=== PATIENT | female | born 1945 | race Caucasian/White ===

== ENCOUNTER 2017-01-02 09:11 | Inpatient (IN) | payer MEDICARE, BC ==
[2017-01-02] MEDS ORDERED: Sodium Chloride 0.9% 10 ML Syringe FLUSH PRN ×3 (10:06→10:20)
--- NOTE | 2017-01-02 10:13 | EDM.PDOC ---
ED HPI GENERAL MEDICAL PROBLEM - General Chief Complaint: Allergic Reaction Stated Complaint: REACTION TO MEDS Time Seen by Provider: 01/02/17 09:50 Source of Information: Reports: Patient, Family, RN Notes Reviewed History Limitations: Reports: No Limitations - History of Present Illness INITIAL COMMENTS - FREE TEXT/NARRATIVE: 71-year-old female presents emergency department today with bilateral eye swelling upper lip swelling she initially developed a small abscess on her forehead approximately 5-6 days ago was treated with Keflex she states she had 2 full day courses of antibiotic return to her primary care where the abscess was lanced with thick purulent drainage was changed antibiotic of clindamycin she has received 1 days dose. The redness has continued to spread as well as the edema. She had a small amount of edema appreciated on her inner aspect of the right eye prior to starting Keflex, the edema and now has spread to both eyes into her upper lip and the redness has progressively gotten worse - Related Data Allergies Allergy/AdvReac Type Severity Reaction Status Date / Time pneumococcal vaccine Allergy Rash Verified 01/02/17 09:38 [Pneumococcal Vaccine] silver sulfadiazine Allergy Rash Verified 01/02/17 09:38 [From Silvadene] Sulfa (Sulfonamide Allergy Rash Verified 01/02/17 09:38 Antibiotics) trazodone Allergy Swelling Verified 01/02/17 09:38 Home Meds: Home Meds Aspirin [Adult Low Dose Aspirin EC] 81 mg PO DAILY 05/08/13 [History] Furosemide [Lasix] 20 mg PO DAILY 05/08/13 [History] Levothyroxine [Synthroid] 1 tab PO DAILY 05/08/13 [History] Pantoprazole [Protonix] 40 mg PO BID 05/08/13 [History] Sotalol HCl [Betapace] 160 mg PO BID 05/08/13 [History] Valsartan [Diovan] 80 mg PO DAILY 05/08/13 [History] Venlafaxine HCl [Venlafaxine ER] 1 tab PO DAILY 05/08/13 [History] Warfarin Sliding Scale [Coumadin Sliding Scale] 2.5 each PO ASDIRECTED 05/08/13 [History] metFORMIN [Glucophage] 500 mg PO DAILY 05/08/13 [History] Calcium Citrate 400 mg PO BID 12/10/14 [History] Doxycycline [Doxycycline Monohydrate] 100 mg PO BID 12/10/14 [History] Losartan [Cozaar] 25 mg PO DAILY 12/10/14 [History] atorvaSTATin [Lipitor] 40 mg PO DAILY 12/10/14 [History] Past Medical History HEENT History: Reports: Cataract Cardiovascular History: Reports: Afib, High Cholesterol, Hypertension Respiratory History: Reports: Sleep Apnea Gastrointestinal History: Reports: GERD Musculoskeletal History: Reports: Fracture Psychiatric History: Reports: Depression Endocrine/Metabolic History: Reports: Diabetes, Type II, Hypothyroidism Hematologic History: Reports: Anticoagulation Therapy - Past Surgical History HEENT Surgical History: Reports: Tonsillectomy Cardiovascular Surgical History: Reports: Other (See Below) Other Cardiovascular Surgeries/Procedures: ablation GI Surgical History: Reports: Cholecystectomy, Colonoscopy Female Surgical History: Reports: Hysterectomy Musculoskeletal Surgical History: Reports: Other (See Below) Other Musculoskeletal Surgeries/Procedures:: wrist fx repair Social & Family History - Tobacco Use Smoking Status *Q: Never Smoker - Recreational Drug Use Recreational Drug Use: No ED ROS ALLERGIC REACTION - Review of Systems Review Of Systems: See Below Constitutional: Denies: Fever, Chills HEENT: Reports: No Symptoms, Eye Discharge. Denies: Eye Pain, Vision Change Respiratory: Reports: No Symptoms Cardiovascular: Reports: No Symptoms GI/Abdominal: Reports: No Symptoms : Reports: No Symptoms Musculoskeletal: Reports: No Symptoms Skin: Reports: Pallor, Rash, Erythema, Wound, Change in Color Neurological: Reports: No Symptoms ED EXAM GENERAL NO PERIP PULSE - Physical Exam Exam: See Below Text/Narrative:: General: female, not in any distress, alert and oriented x3 HEENT: head is she does have an open wound on her forehead between her eyes with thick purulent yellow drainage normocephalic, eyes eyes pupils are equal and round the left eye is difficult to appreciate because of the periorbital edema there is a mild amount of erythema appreciated around the eye the right eye also has edema but she is able to open this I the erythema is also present periorbital. Ears tympanic membranes clear and ackerman landmarks and light reflex are present bilaterally canals are clear. Nose no septal deviation, nares are clear, no blood present. Mouth mucosa is moist and pink no erythema or exudate noted in soft palate, tongue is midline uvula is midline, dentition is intact. Neck: Supple no thyromegaly no tracheal deviation. Nodes: Cervical nodes subclavicular nodes nontender no palpable lymphadenopathy noted. Lungs: clear to auscultation bilaterally with symmetrical respirations, no adventitious noise appreciated. CV: Regular rate and rhythm S1 and S2 appreciated no murmurs rubs or gallops noted. Abdomen: Soft, nontender, no palpable masses or organomegaly appreciated, no distention no guarding bowel sounds are present, . Neuro: Cranial nerves II through XII grossly intact Skin: erythema described above Extremities: chronic venous stasis dermatitis Course - Vital Signs Last Recorded V/S: Last Vital Signs Temp 96.8 F 01/02/17 09:35 Pulse 85 01/02/17 09:35 Resp 20 01/02/17 09:35 BP 171/96 H 01/02/17 09:35 Pulse Ox 94 L 01/02/17 09:35 - Orders/Labs/Meds Orders: Active Orders 24 hr Category Date Time Status Peripheral IV Care [RC] . DIRECTED Care 01/02/17 10:07 Active CULTURE BLOOD [BC] Urgent Lab 01/02/17 10:15 Received CULTURE BLOOD [BC] Urgent Lab 01/02/17 10:20 Received CULTURE WOUND + SMEAR [] Urgent Lab 01/02/17 10:45 Results Piperacillin/Tazobactam [Zosyn] 4.5 gm Med 01/02/17 11:45 Active Sodium Chloride 0.9% [Normal Saline] 100 ml IV Q6H Sodium Chloride 0.9% [Normal Saline] 1,000 ml Med 01/02/17 10:45 Active IV ASDIRECTED Sodium Chloride 0.9% [Saline Flush] Med 01/02/17 10:06 Active 10 ml FLUSH ASDIRECTED PRN Sodium Chloride 0.9% [Saline Flush] Med 01/02/17 10:06 Active 10 ml FLUSH ASDIRECTED PRN Sodium Chloride 0.9% [Saline Flush] Med 01/02/17 10:20 Active 10 ml FLUSH ONETIME PRN Vancomycin 1.5 gm Med 01/02/17 12:00 Active Sodium Chloride 0.9% [Normal Saline] 250 ml IV Q12H Blood Culture x2 Reflex Set [OM.PC] Urgent Oth 01/02/17 10:06 Ordered Peripheral IV Insertion Adult [OM.PC] Stat Oth 01/02/17 10:06 Ordered Medication Orders Sodium Chloride (Normal Saline) 1,000 mls @ 500 mls/hr IV ASDIRECTED JENNIFER Last Admin: 01/02/17 11:22 Dose: 500 mls/hr Piperacillin Sod/Tazobactam (Sod 4.5 gm/ Sodium Chloride) 100 mls @ 200 mls/hr IV Q6H JENNIFER Vancomycin HCl 1.5 gm/ Sodium (Chloride) 250 mls @ 150 mls/hr IV Q12H JENNIFER Sodium Chloride (Saline Flush) 10 ml FLUSH ASDIRECTED PRN PRN Reason: Keep Vein Open Sodium Chloride (Saline Flush) 10 ml FLUSH ASDIRECTED PRN PRN Reason: Keep Vein Open Sodium Chloride (Saline Flush) 10 ml FLUSH ONETIME PRN PRN Reason: PER RADIOLOGY PROTOCOL Last Admin: 01/02/17 11:01 Dose: 10 ml Labs: Laboratory Tests 01/02/17 01/02/17 01/02/17 Range/Units 10:15 10:15 10:15 WBC 9.4 (4.5-11.0) K/uL RBC 4.29 (3.30-5.50) M/uL Hgb 12.3 (12.0-15.0) g/dL Hct 37.7 (36.0-48.0) % MCV 88 (80-98) fL MCH 29 (27-31) pg MCHC 33 (32-36) % Plt Count 249 (150-400) K/uL Neut % (Auto) 71 H (36-66) % Lymph % (Auto) 17 L (24-44) % [place] % (Auto) 9 H (2-6) % Eos % (Auto) 2 (2-4) % Baso % (Auto) 1 (0-1) % PT 21.2 H (9.5-12.0) sec INR 1.93 H (0.80-1.20) Sodium 138 L (140-148) mmol/L Potassium 4.1 (3.6-5.2) mmol/L Chloride 102 (100-108) mmol/L Carbon Dioxide 28 (21-32) mmol/L Anion Gap 12.1 (5.0-14.0) mmol/L BUN 12 (7-18) mg/dL Creatinine 0.7 (0.6-1.0) mg/dL Est Cr Clr Drug Dosing 68.65 mL/min Estimated GFR (MDRD) > 60 (>60) Glucose 166 H (74-106) mg/dL Lactic Acid (0.4-2.0) mmol/L Calcium 9.0 (8.5-10.1) mg/dL Total Bilirubin 0.4 (0.2-1.0) mg/dL AST 16 (15-37) U/L ALT 30 (12-78) U/L Alkaline Phosphatase 70 (46-116) U/L Total Protein 7.4 (6.4-8.2) g/dL Albumin 3.1 L (3.4-5.0) g/dL Globulin 4.3 H (2.3-3.5) g/dL Albumin/Globulin Ratio 0.7 L (1.2-2.2) 01/02/17 Range/Units 10:15 WBC (4.5-11.0) K/uL RBC (3.30-5.50) M/uL Hgb (12.0-15.0) g/dL Hct (36.0-48.0) % MCV (80-98) fL MCH (27-31) pg MCHC (32-36) % Plt Count (150-400) K/uL Neut % (Auto) (36-66) % Lymph % (Auto) (24-44) % [place] % (Auto) (2-6) % Eos % (Auto) (2-4) % Baso % (Auto) (0-1) % PT (9.5-12.0) sec INR (0.80-1.20) Sodium (140-148) mmol/L Potassium (3.6-5.2) mmol/L Chloride (100-108) mmol/L Carbon Dioxide (21-32) mmol/L Anion Gap (5.0-14.0) mmol/L BUN (7-18) mg/dL Creatinine (0.6-1.0) mg/dL Est Cr Clr Drug Dosing mL/min Estimated GFR (MDRD) (>60) Glucose (74-106) mg/dL Lactic Acid 1.1 (0.4-2.0) mmol/L Calcium (8.5-10.1) mg/dL Total Bilirubin (0.2-1.0) mg/dL AST (15-37) U/L ALT (12-78) U/L Alkaline Phosphatase (46-116) U/L Total Protein (6.4-8.2) g/dL Albumin (3.4-5.0) g/dL Globulin (2.3-3.5) g/dL Albumin/Globulin Ratio (1.2-2.2) Meds: Medications Generic Name Dose Route Start Last Admin Trade Name Saritha PRN Reason Stop Dose Admin Sodium Chloride 1,000 mls @ 500 mls/hr 01/02/17 10:45 01/02/17 11:22 Normal Saline IV 500 mls/hr ASDIRECTED JENNIFER Administration Piperacillin Sod/Tazobactam 100 mls @ 200 mls/hr 01/02/17 11:45 Sod 4.5 gm/ Sodium Chloride IV Q6H JENNIFER Vancomycin HCl 1.5 gm/ Sodium 250 mls @ 150 mls/hr 01/02/17 12:00 Chloride IV Q12H JENNIFER Sodium Chloride 10 ml 01/02/17 10:06 Saline Flush FLUSH ASDIRECTED PRN Keep Vein Open Sodium Chloride 10 ml 01/02/17 10:06 Saline Flush FLUSH ASDIRECTED PRN Keep Vein Open Sodium Chloride 10 ml 01/02/17 10:20 01/02/17 11:01 Saline Flush FLUSH 10 ml ONETIME PRN Administration PER RADIOLOGY PROTOCOL Discontinued Medications Generic Name Dose Route Start Last Admin Trade Name Saritha PRN Reason Stop Dose Admin Sodium Chloride 75 mls @ 3 mls/sec 01/02/17 10:20 01/02/17 11:01 Normal Saline IV 01/02/17 10:21 3 mls/sec ONETIME ONE Administration Iopamidol 100 ml 01/02/17 10:20 01/02/17 11:01 Isovue-300 (61%) IV 01/02/17 10:21 100 ml . DIRECTED PRN Administration RADIOLOGY EXAM Departure - Departure Time of Disposition: 11:52 Disposition: Admitted As Inpatient 67 Condition: Good Clinical Impression: Periorbital cellulitis Qualifiers: Laterality: unspecified laterality Qualified Code(s): L03.213 - Periorbital cellulitis - Discharge Information Forms: ED Department Discharge - My Orders Last 24 Hours: My Active Orders 01/02/17 10:06 Sodium Chloride 0.9% [Saline Flush] 10 ml FLUSH ASDIRECTED PRN Sodium Chloride 0.9% [Saline Flush] 10 ml FLUSH ASDIRECTED PRN Blood Culture x2 Reflex Set [OM.PC] Urgent Peripheral IV Insertion Adult [OM.PC] Stat 01/02/17 10:07 Peripheral IV Care [RC] . DIRECTED 01/02/17 10:15 CULTURE BLOOD [BC] Urgent 01/02/17 10:20 CULTURE BLOOD [BC] Urgent Sodium Chloride 0.9% [Saline Flush] 10 ml FLUSH ONETIME PRN 01/02/17 10:45 CULTURE WOUND + SMEAR [RM] Urgent Sodium Chloride 0.9% [Normal Saline] 1,000 ml IV ASDIRECTED 01/02/17 11:45 Piperacillin/Tazobactam [Zosyn] 4.5 gm Sodium Chloride 0.9% [Normal Saline] 100 ml IV Q6H 01/02/17 12:00 Vancomycin 1.5 gm Sodium Chloride 0.9% [Normal Saline] 250 ml IV Q12H - Assessment/Plan Last 24 Hours: My Active Orders 01/02/17 10:06 Sodium Chloride 0.9% [Saline Flush] 10 ml FLUSH ASDIRECTED PRN Sodium Chloride 0.9% [Saline Flush] 10 ml FLUSH ASDIRECTED PRN Blood Culture x2 Reflex Set [OM.PC] Urgent Peripheral IV Insertion Adult [OM.PC] Stat 01/02/17 10:07 Peripheral IV Care [RC] . DIRECTED 01/02/17 10:15 CULTURE BLOOD [BC] Urgent 01/02/17 10:20 CULTURE BLOOD [BC] Urgent Sodium Chloride 0.9% [Saline Flush] 10 ml FLUSH ONETIME PRN 01/02/17 10:45 CULTURE WOUND + SMEAR [RM] Urgent Sodium Chloride 0.9% [Normal Saline] 1,000 ml IV ASDIRECTED 01/02/17 11:45 Piperacillin/Tazobactam [Zosyn] 4.5 gm Sodium Chloride 0.9% [Normal Saline] 100 ml IV Q6H 01/02/17 12:00 Vancomycin 1.5 gm Sodium Chloride 0.9% [Normal Saline] 250 ml IV Q12H Plan: Assessment Acuity =acute Site and laterality = periorbital cellulitis complicated patient with known history of diabetes mellitus type 2, hypertension and dyslipidemia , kidney patient with known history of atrial fibrillation on chronic anticoagulation therapy Etiology = suspicious for bacterial cause Manifestations = none Location of injury = home Lab values = CBC within normal limits, INR stable at 1.93 albumin low at 2.[address] scan consistent with periorbital cellulitis Plan call discussed case with hospitalist search engine optimization strategist he agreed to, and evaluate the patient in the ED for admission, started on antibiotics of vancomycin and Zosyn blood cultures were drawn Patient was in agreement with the plan all questions were answered, This note was dictated using Nu3 voice recognition software please call with any questions.
[2017-01-02] MEDS ORDERED: Sodium Chloride 0.9% 75 ML IV ONE (10:20)
[2017-01-02] MEDS ORDERED: Iopamidol 612 MG/ML 100 ML Bottle IV PRN (10:20)
[2017-01-02] MEDS ORDERED: Sodium Chloride 0.9% 1,000 ML IV SCH (10:45)
--- NOTE | 2017-01-02 11:33 | CT ---
Max Facial Sinus w Cont HISTORY: ?periorbital cellulitis, pain, forehead abscess Axial spiral enhanced maxillofacial CT scan was obtained including the orbits and mandible. Sagittal and coronal reconstructions were obtained. There are no prior exams for comparison. FINDINGS: There is subcutaneous soft tissues laterally and edema over the frontal region above the o rbits. There is also soft tissue swelling and edema in the periorbital and facial soft tissues, grea ter on the left. No abnormal fluid collection is identified. I see no evidence for abscess formation . Globe appears symmetric. I see no retrobulbar inflammation or fluid. Bony structures are unremarkabl e. Paranasal sinuses are clear. IMPRESSION: Probable periorbital cellulitis, left greater than right extending to the frontal and fa cial region. No signs of abscess formation. Findings were called to Officer in the emergency department at 1125 hours. Total DLP 222 mGycm
[2017-01-02] MEDS ORDERED: Piperacillin/Tazobactam 4.5 GM in Sodium Chloride 0.9% 100 ML IV SCH (11:45)
[2017-01-02] MEDS ORDERED: Piperacillin/Tazobactam/Dext 4.5 GM in Premix Bag 1 BAG IV SCH (12:30)
--- NOTE | 2017-01-02 12:47 | PCM.HP ---
H&P History of Present Illness - General Date of Service: 01/02/17 Admit Problem/Dx: Admission Diagnosis/Problem Admission Diagnosis/Problem Orbital cellulitis Source of Information: Patient, Family, Provider History Limitations: Reports: No Limitations - History of Present Illness Initial Comments - Free Text/Narative: Meghann presents to the emergency room with 4 days of progressive facial swelling. Initially started with a small what she thought was a spider bite on her forehead. Redness, warmth and swelling of the area progressed across her forehead and then down between her eyes, around her eyes and across her face. Left side is involved more than the right. She was started on antibiotics a couple of days ago but seems to be getting worse despite being on antibiotics. The area was debrided yesterday and again this morning in the emergency room with ongoing purulent discharge noted until drainage this morning. She hasn't had subjective fevers or chills at home. Her appetite has been normal. She reports mild pain in the forehead area but no pain around her eyes. Eyes are swollen shut and she can't see out of her left eye. Right eye vision seems to be normal. Mild constipation but this is chronic. No complaints of shortness of breath. No headache. Workup in the emergency room revealed evidence for significant facial and periorbital cellulitis. Head CT was unremarkable for intracranial issues and showed mostly superficial infection. She will be admitted for IV antibiotics. - Related Data Allergies/Adverse Reactions: Allergies Allergy/AdvReac Type Severity Reaction Status Date / Time pneumococcal vaccine Allergy Rash Verified 01/02/17 09:38 [Pneumococcal Vaccine] silver sulfadiazine Allergy Rash Verified 01/02/17 09:38 [From Silvadene] Sulfa (Sulfonamide Allergy Rash Verified 01/02/17 09:38 Antibiotics) trazodone Allergy Swelling Verified 01/02/17 09:38 Home Medications: Home Meds Aspirin [Adult Low Dose Aspirin EC] 81 mg PO DAILY 05/08/13 [History] Furosemide [Lasix] 20 mg PO DAILY 05/08/13 [History] Pantoprazole [Protonix] 40 mg PO BID 05/08/13 [History] Venlafaxine HCl [Venlafaxine ER] 75 mg PO DAILY 05/08/13 [History] metFORMIN [Glucophage] 1,000 mg PO DAILY 05/08/13 [History] Calcium Citrate 400 mg PO BID 12/10/14 [History] Losartan [Cozaar] 50 mg PO DAILY 12/10/14 [History] Albuterol Sulfate [Proair Hfa] 1 - 2 puff INH Q4H PRN 01/02/17 [History] Ammonium Lactate [Amlactin 12% Lotion] 1 applic TOP BID 01/02/17 [History] Clindamycin HCl 300 mg PO Q6H 01/02/17 [History] Diltiazem HCl [Cardizem Cd] 120 mg PO DAILY 01/02/17 [History] Glimepiride 4 mg PO DAILY 01/02/17 [History] Levothyroxine [Synthroid] 100 mcg PO DAILY 01/02/17 [History] Magnesium Oxide 1 tab PO DAILY 01/02/17 [History] Rosuvastatin [Crestor] 5 mg PO ASDIRECTED 01/02/17 [History] Warfarin [Coumadin] 2.5 mg PO ASDIRECTED 01/02/17 [History] metroNIDAZOLE [Metrogel] 1 applic TOP ASDIRECTED 01/02/17 [History] Past Medical History HEENT History: Reports: Cataract Cardiovascular History: Reports: Afib, High Cholesterol, Hypertension Respiratory History: Reports: Sleep Apnea Gastrointestinal History: Reports: GERD Musculoskeletal History: Reports: Fracture Psychiatric History: Reports: Depression Endocrine/Metabolic History: Reports: Diabetes, Type II, Hypothyroidism Hematologic History: Reports: Anticoagulation Therapy - Past Surgical History HEENT Surgical History: Reports: Tonsillectomy Cardiovascular Surgical History: Reports: Other (See Below) Other Cardiovascular Surgeries/Procedures: ablation GI Surgical History: Reports: Cholecystectomy, Colonoscopy Female Surgical History: Reports: Hysterectomy Musculoskeletal Surgical History: Reports: Other (See Below) Other Musculoskeletal Surgeries/Procedures:: wrist fx repair Social & Family History - Family History Cardiac: Reports: Afib - Tobacco Use Smoking Status *Q: Never Smoker - Alcohol Use Alcohol Use History: No - Recreational Drug Use Recreational Drug Use: No H&P Review of Systems - Review of Systems: Review Of Systems: See Below Free Text/Narrative: A complete 12 point review of systems was obtained. Pertinent positives and negatives are noted in the history of present illness. All other systems were reviewed and were negative except as noted. Exam - Exam Exam: See Below - Vital Signs Vital Signs: Last Vital Signs Temp 36.0 C 01/02/17 09:35 Pulse 85 01/02/17 09:35 Resp 20 01/02/17 09:35 BP 171/96 H 01/02/17 09:35 Pulse Ox 94 L 01/02/17 09:35 Weight: 112.5 kg - Exam Quality Assessment: No: Supplemental Oxygen General: Alert, Oriented, Cooperative. No: Mild Distress HEENT: Mucosa Moist & [place], Normal Nasal Septum, Other (4x4 cm area of erythema and induration with surgical wound for abscess drainage in the center on forehead. significant swelling or forehead, eyes and both cheeks, L>R. areas of swelling have mild erythema and warmth) Neck: Supple, Trachea Midline. No: Lymphadenopathy, Thyromegaly Lungs: Clear to Auscultation, Normal Respiratory Effort Cardiovascular: Regular Rate, Regular Rhythm. No: Systolic Murmur Abdomen: Normal Bowel Sounds, Soft. No: Distention, Tenderness Back Exam: Normal Inspection, Full Range of Motion Extremities: Normal Inspection, Normal Pulses. No: Edema Skin: Warm, Dry Neuro Extensive - Mental Status: Alert, Oriented x3, Nl Response to Commands Neuro Extensive - Motor, Sensory, Reflexes: CN II-XII Intact. No: Dysarthria, Abnormal Motor, Tremor Psychiatric: Alert, Normal Affect - Patient Data Lab Results Last 24 hrs: Laboratory Results - last 24 hr 01/02/17 01/02/17 01/02/17 Range/Units 10:15 10:15 10:15 WBC 9.4 (4.5-11.0) K/uL RBC 4.29 (3.30-5.50) M/uL Hgb 12.3 (12.0-15.0) g/dL Hct 37.7 (36.0-48.0) % MCV 88 (80-98) fL MCH 29 (27-31) pg MCHC 33 (32-36) % Plt Count 249 (150-400) K/uL Neut % (Auto) 71 H (36-66) % Lymph % (Auto) 17 L (24-44) % Casey % (Auto) 9 H (2-6) % Eos % (Auto) 2 (2-4) % Baso % (Auto) 1 (0-1) % PT 21.2 H (9.5-12.0) sec INR 1.93 H (0.80-1.20) Sodium 138 L (140-148) mmol/L Potassium 4.1 (3.6-5.2) mmol/L Chloride 102 (100-108) mmol/L Carbon Dioxide 28 (21-32) mmol/L Anion Gap 12.1 (5.0-14.0) mmol/L BUN 12 (7-18) mg/dL Creatinine 0.7 (0.6-1.0) mg/dL Est Cr Clr Drug Dosing 68.65 mL/min Estimated GFR (MDRD) > 60 (>60) Glucose 166 H (74-106) mg/dL Lactic Acid (0.4-2.0) mmol/L Calcium 9.0 (8.5-10.1) mg/dL Total Bilirubin 0.4 (0.2-1.0) mg/dL AST 16 (15-37) U/L ALT 30 (12-78) U/L Alkaline Phosphatase 70 (46-116) U/L Total Protein 7.4 (6.4-8.2) g/dL Albumin 3.1 L (3.4-5.0) g/dL Globulin 4.3 H (2.3-3.5) g/dL Albumin/Globulin Ratio 0.7 L (1.2-2.2) 01/02/17 Range/Units 10:15 WBC (4.5-11.0) K/uL RBC (3.30-5.50) M/uL Hgb (12.0-15.0) g/dL Hct (36.0-48.0) % MCV (80-98) fL MCH (27-31) pg MCHC (32-36) % Plt Count (150-400) K/uL Neut % (Auto) (36-66) % Lymph % (Auto) (24-44) % Casey % (Auto) (2-6) % Eos % (Auto) (2-4) % Baso % (Auto) (0-1) % PT (9.5-12.0) sec INR (0.80-1.20) Sodium (140-148) mmol/L Potassium (3.6-5.2) mmol/L Chloride (100-108) mmol/L Carbon Dioxide (21-32) mmol/L Anion Gap (5.0-14.0) mmol/L BUN (7-18) mg/dL Creatinine (0.6-1.0) mg/dL Est Cr Clr Drug Dosing mL/min Estimated GFR (MDRD) (>60) Glucose (74-106) mg/dL Lactic Acid 1.1 (0.4-2.0) mmol/L Calcium (8.5-10.1) mg/dL Total Bilirubin (0.2-1.0) mg/dL AST (15-37) U/L ALT (12-78) U/L Alkaline Phosphatase (46-116) U/L Total Protein (6.4-8.2) g/dL Albumin (3.4-5.0) g/dL Globulin (2.3-3.5) g/dL Albumin/Globulin Ratio (1.2-2.2) Result Diagrams: 01/02/17 10:15 01/02/17 10:15 [place] Results Last 24 hrs: Microbiology 01/02/17 10:45 Gram Stain - Final Head Imaging Impressions Last 24 hrs: CT facial/sinus - facial edema but no abscess or deep infection *Q Meaningful Use (ADM) - VTE *Q VTE Criteria *Q: - VTE Risk Assess *Q Each Risk Factor Represents 1 Point: None Total Score 1 Point Risk Factors: 0 Each Risk Factor Represents 2 Points: Age 60 - 74 Years, Morbid Obesity (BMI Greater than 40) Total Score 2 Point Risk Factors: 4 Each Risk Factor Represents 3 Points: None Total Score 3 Point Risk Factors: 0 Each Risk Factor Represents 5 Points: None Total Score 5 Point Risk Factors: 0 Venous Thromboembolism Risk Factor Score *Q: 4 - Stroke *Q Stroke Criteria *Q: - AMI *Q AMI Criteria *Q: - Problem List (1) Periorbital cellulitis SNOMED Code(s): 896503870 ICD Code: L03.213 - PERIORBITAL CELLULITIS Status: Acute Current Visit: Yes Qualifiers: Laterality: unspecified laterality Qualified Code(s): L03.213 - Periorbital cellulitis (2) Abscess or cellulitis of forehead SNOMED Code(s): 117714199 ICD Code: JVI9202 - Status: Acute Current Visit: Yes (3) Diabetes mellitus type 2 in obese SNOMED Code(s): 74552103 ICD Code: E11.69 - TYPE 2 DIABETES MELLITUS WITH OTHER SPECIFIED COMPLICATION ; E66.9 - OBESITY, UNSPECIFIED Status: Chronic Current Visit: Yes Problem List Initiated/Reviewed/Updated: Yes Orders Last 24hrs: Active Orders 24 hr Category Date Time Status Patient Status Manage Transfer [TRANSFER] Routine ADT 01/02/17 12:33 Ordered Peripheral IV Care [RC] . DIRECTED Care 01/02/17 10:07 Active CULTURE BLOOD [BC] Urgent Lab 01/02/17 10:15 Received CULTURE BLOOD [BC] Urgent Lab 01/02/17 10:20 Received CULTURE WOUND + SMEAR [RM] Urgent Lab 01/02/17 10:45 Results Piperacillin/Tazobactam/Dext [Zosyn in Dextrose Iso- Med 01/02/17 12:30 Active Osmotic] 4.5 gm Premix Bag 1 bag IV Q6H Sodium Chloride 0.9% [Normal Saline] 1,000 ml Med 01/02/17 10:45 Active IV ASDIRECTED Sodium Chloride 0.9% [Saline Flush] Med 01/02/17 10:06 Active 10 ml FLUSH ASDIRECTED PRN Vancomycin 1.75 gm Med 01/03/17 01:00 Active Sodium Chloride 0.9% [Normal Saline] 250 ml IV Q12H Vancomycin 2.25 gm Med 01/02/17 13:00 Active Sodium Chloride 0.9% [Normal Saline] 250 ml IV ONETIME Blood Culture x2 Reflex Set [OM.PC] Urgent Oth 01/02/17 10:06 Ordered Peripheral IV Insertion Adult [OM.PC] Stat Oth 01/02/17 10:06 Ordered Resuscitation Status Routine Resus Stat 01/02/17 12:36 Ordered Medication Orders Sodium Chloride (Normal Saline) 1,000 mls @ 500 mls/hr IV ASDIRECTED [facility] Last Admin: 01/02/17 11:22 Dose: 500 mls/hr Piperacillin/Tazobactam/ (Dextrose 4.5 gm/ Premix) 100 mls @ 200 mls/hr IV Q6H JENNIFER Vancomycin HCl 2.25 gm/ Sodium (Chloride) 250 mls @ 125 mls/hr IV ONETIME ONE Stop: 01/02/17 14:59 Vancomycin HCl 1.75 gm/ Sodium (Chloride) 250 mls @ 150 mls/hr IV Q12H JENNIFER Sodium Chloride (Saline Flush) 10 ml FLUSH ASDIRECTED PRN PRN Reason: Keep Vein Open Assessment/Plan Comment:: Assessment and plan - Facial and periorbital cellulitis - left side of the face involved more than the right. Head CT did not show evidence for deeper penetration of the infection at this time. There is no evidence for sepsis. Infection seems to be spreading despite outpatient antibiotics. Area was incised and debrided in the emergency room again today and a culture is pending. -Continue vancomycin and Pip/Tazo -Gentle IV fluids -Pain control -Follow-up cultures Diabetes mellitus type 2 - well controlled by history. On only oral medications. -Continue metformin Paroxysmal atrial fibrillation - has been in sinus since ablation. -Continue home medications -Continue warfarin with daily INR Maintenance issues - - DVT prophylaxis - mechanical - GI prophylaxis - not indicated - Nutrition - consistent carbohydrate diet - Hassan catheter - not indicated CODE STATUS - full Admission justification - This patient will be admitted for inpatient services and is medically appropriate meeting medical necessity for inpatient admission as outlined in my documentation. I reasonably expect the patient will require inpatient services that span a period time over 2 midnights. I reasonably expect this patient to be discharged or transferred within 96 hours [facility]. Disposition - anticipated discharged home after the hospital stay Chad Chase M.D.
[2017-01-02] MEDS ORDERED: Polyethylene Glycol 3350 Powder 17 GM Packet PO PRN (13:22)
[2017-01-02] MEDS ORDERED: Ondansetron 4 MG Tab.DIS PO PRN (13:22)
[2017-01-02] MEDS ORDERED: Acetaminophen 325 MG Tab PO PRN (13:22)
[2017-01-02] MEDS: Sodium Chloride 0.9% 1,000 ML IV SCH (14:03)
[2017-01-02] MEDS: Pantoprazole 40 MG Tab.CR PO SCH (17:24)
[2017-01-02] MEDS: Piperacillin/Tazobactam/Dext 3.375 GM in Premix Bag 1 BAG IV SCH (20:20)
[2017-01-02] MEDS: Lactobacillus Rhamnosus GG (Probiotic) Cap PO SCH (20:24)
[2017-01-03] MEDS: Piperacillin/Tazobactam/Dext 3.375 GM in Premix Bag 1 BAG IV SCH ×4 (00:57→19:23)
[2017-01-03] MEDS: Aspirin 81 MG Tab.EC PO SCH (08:02)
[2017-01-03] MEDS: Furosemide 20 MG Tab PO SCH (08:02)
[2017-01-03] MEDS: Magnesium Oxide 400 MG Tab PO SCH (08:02)
[2017-01-03] MEDS: Venlafaxine 75 MG Cap.ER PO SCH (08:03)
[2017-01-03] MEDS: Diltiazem 120 MG Cap.CD PO SCH (08:03)
[2017-01-03] MEDS: Losartan 50 MG Tab PO SCH (08:04)
[2017-01-03] MEDS: metFORMIN 500 MG Tab PO SCH (08:04)
[2017-01-03] MEDS: Lactobacillus Rhamnosus GG (Probiotic) Cap PO SCH ×2 (08:04→21:02)
[2017-01-03] MEDS: Pantoprazole 40 MG Tab.CR PO SCH ×2 (08:05→17:00)
[2017-01-03] MEDS: Glimepiride 2 MG Tab PO SCH (08:05)
[2017-01-03] MEDS: Levothyroxine 100 MCG Tab PO SCH (08:06)
[2017-01-03] MEDS: Rosuvastatin 10 MG Tab PO SCH (08:06)
--- NOTE | 2017-01-03 17:57 | PCM.PN ---
- General Info Date of Service: 01/03/17 Functional Status: Reports: pain controlled, tolerating diet, ambulating - Review of Systems General: Denies: Fever HEENT: Denies: eye pain Systems Review Comment:: No acute events overnight. Facial swelling has improved and she is now able to open her left eye. No complaints of eye pain. Minimal pain in her face and for head at this time. No fevers overnight. Culture from the forehead abscess is growing a gram-positive cocci with identification pending. I did drain some additional purulent material from the forehead abscess this morning. Clinically she is feeling better and tolerating current antibiotics. - Patient Data Vitals - most recent: Last Vital Signs Temp 36.9 C 01/03/17 15:00 Pulse 76 01/03/17 15:00 Resp 16 01/03/17 15:00 BP 99/68 01/03/17 15:00 Pulse Ox 94 L 01/03/17 15:00 Weight - most recent: 113.852 kg I&O - last 24 hours: Intake & Output 01/03/17 01/03/17 01/03/17 06:59 14:59 22:59 Intake Total 463 440 Output Total 600 900 Balance -137 -460 Lab Results last 24 hrs: Laboratory Results - last 24 hr 01/03/17 01/03/17 01/03/17 Range/Units 05:45 05:45 05:45 WBC 8.2 (4.5-11.0) K/uL RBC 4.05 (3.30-5.50) M/uL Hgb 11.2 L (12.0-15.0) g/dL Hct 36.0 (36.0-48.0) % MCV 89 (80-98) fL MCH 28 (27-31) pg MCHC 31 L (32-36) % Plt Count 234 (150-400) K/uL PT 21.9 H (9.5-12.0) sec INR 1.99 H (0.80-1.20) Sodium 140 (140-148) mmol/L Potassium 4.6 (3.6-5.2) mmol/L Chloride 107 (100-108) mmol/L Carbon Dioxide 28 (21-32) mmol/L Anion Gap 5.0 (5.0-14.0) mmol/L BUN 9 (7-18) mg/dL Creatinine 0.7 (0.6-1.0) mg/dL Est Cr Clr Drug Dosing 68.65 mL/min Estimated GFR (MDRD) > 60 (>60) Glucose 118 H (74-106) mg/dL Calcium 8.6 (8.5-10.1) mg/dL Med Orders - Current: Current Medications Acetaminophen (Tylenol) 650 mg PO Q4H PRN PRN Reason: Pain (Mild 1-3)/fever Last Admin: 01/02/17 21:21 Dose: 650 mg Aspirin (Halfprin) 81 mg PO DAILY [facility] Last Admin: 01/03/17 08:02 Dose: 81 mg Diltiazem HCl (Cardizem Cd) 120 mg PO DAILY [facility] Last Admin: 01/03/17 08:03 Dose: 120 mg Furosemide (Lasix) 20 mg PO DAILY [facility] Last Admin: 01/03/17 08:02 Dose: 20 mg Glimepiride (Amaryl) 4 mg PO DAILY@0800 [facility] Last Admin: 01/03/17 08:05 Dose: 4 mg Piperacillin/Tazobactam/ (Dextrose 3.375 gm/ Premix) 50 mls @ 100 mls/hr IV Q6H [facility] Last Admin: 01/03/17 14:36 Dose: 100 mls/hr Sodium Chloride (Normal Saline) 1,000 mls @ 25 mls/hr IV ASDIRECTED [facility] Last Admin: 01/02/17 14:03 Dose: 25 mls/hr Vancomycin HCl 1.75 gm/ Sodium (Chloride) 250 mls @ 150 mls/hr IV Q12H [facility] Last Admin: 01/03/17 15:07 Dose: 150 mls/hr Lactobacillus Rhamnosus (Culturelle) 1 cap PO BID [facility] Last Admin: 01/03/17 08:04 Dose: 1 cap Levothyroxine Sodium (Synthroid) 100 mcg PO DAILY@0730 [facility] Last Admin: 01/03/17 08:06 Dose: 100 mcg Losartan Potassium (Cozaar) 50 mg PO DAILY [facility] Last Admin: 01/03/17 08:04 Dose: 50 mg Magnesium Oxide (Magnesium Oxide) 400 mg PO DAILY [facility] Last Admin: 01/03/17 08:02 Dose: 400 mg Metformin HCl (Glucophage) 1,000 mg PO DAILY@0800 [facility] Last Admin: 01/03/17 08:04 Dose: 1,000 mg Ondansetron HCl (Zofran Odt) 4 mg PO Q6H PRN PRN Reason: Nausea able to take PO Pantoprazole Sodium (Protonix) 40 mg PO BIDAC [facility] Last Admin: 01/03/17 08:05 Dose: 40 mg Polyethylene Glycol (Miralax) 17 gm PO DAILY PRN PRN Reason: Constipation Rosuvastatin Calcium (Crestor) 5 mg PO MoWeFr@0900 [facility] Last Admin: 01/03/17 08:06 Dose: 5 mg Sodium Chloride (Saline Flush) 10 ml FLUSH ASDIRECTED PRN PRN Reason: Keep Vein Open Venlafaxine HCl (Effexor Xr) 75 mg PO DAILY [facility] Last Admin: 01/03/17 08:03 Dose: 75 mg Discontinued Medications Sodium Chloride (Normal Saline) 75 mls @ 3 mls/sec IV ONETIME ONE Stop: 01/02/17 10:21 Last Admin: 01/02/17 11:01 Dose: 3 mls/sec Sodium Chloride (Normal Saline) 1,000 mls @ 500 mls/hr IV ASDIRECTED [facility] Last Admin: 01/02/17 11:22 Dose: 500 mls/hr Piperacillin/Tazobactam/ (Dextrose 4.5 gm/ Premix) 100 mls @ 200 mls/hr IV Q6H [facility] Last Admin: 01/02/17 12:48 Dose: 200 mls/hr Vancomycin HCl 2.25 gm/ Sodium (Chloride) 250 mls @ 125 mls/hr IV ONETIME ONE Stop: 01/02/17 14:59 Last Admin: 01/02/17 14:00 Dose: 125 mls/hr Iopamidol (Isovue-300 (61%)) 100 ml IV . DIRECTED PRN PRN Reason: RADIOLOGY EXAM Stop: 01/02/17 10:21 Last Admin: 01/02/17 11:01 Dose: 100 ml Sodium Chloride (Saline Flush) 10 ml FLUSH ASDIRECTED PRN PRN Reason: Keep Vein Open Sodium Chloride (Saline Flush) 10 ml FLUSH ONETIME PRN PRN Reason: PER RADIOLOGY PROTOCOL Last Admin: 01/02/17 11:01 Dose: 10 ml - Exam Quality Assessment: No: supplemental oxygen General: alert, oriented, cooperative, no acute distress HEENT: Pupils equal, Mucous membr. moist/pink, Other (3 x 4 cm area of induration and erythema in the middle of the forehead with small abscess that has been drained in the center of this area. Minimal purulent material removed today. Facial swelling improved significantly but she has some residual left eye and cheek swelling) Neck: supple Lungs: Normal respiratory effort Cardiovascular: Regular Rate, Regular Rhythm Abdomen: soft, no distension Extremities: no edema, no cyanosis Skin: warm, dry Psy/Mental Status: alert, normal affect - Problem List & Annotations (1) Periorbital cellulitis SNOMED Code(s): 167395507 Code(s): L03.213 - PERIORBITAL CELLULITIS Status: Acute Current Visit: Yes Qualifiers: Laterality: unspecified laterality Qualified Code(s): L03.213 - Periorbital cellulitis (2) Abscess or cellulitis of forehead SNOMED Code(s): 092977739 Code(s): TPC7935 - Status: Acute Current Visit: Yes (3) Diabetes mellitus type 2 in obese SNOMED Code(s): 32204705 Code(s): E11.69 - TYPE 2 DIABETES MELLITUS WITH OTHER SPECIFIED COMPLICATION ; E66.9 - OBESITY, UNSPECIFIED Status: Chronic Current Visit: Yes - Problem List Review Problem List Initiated/Reviewed/Updated: Yes - My Orders Last 24 Hours: My Active Orders 01/02/17 19:00 Piperacillin/Tazobactam/Dext [Zosyn in Dextrose Iso-Osmotic 3.375 GM] 3.375 gm Premix Bag 1 bag IV Q6H 01/02/17 21:00 Lactobacillus Rhamnosus GG [Culturelle] 1 cap PO BID 01/02/17 Dinner Consistent Carbohydrate Diet [DIET] 01/03/17 01:00 Vancomycin 1.75 gm Sodium Chloride 0.9% [Normal Saline] 250 ml IV Q12H 01/04/17 05:00 CBC W/O DIFF,HEMOGRAM [HEME] Timed (1) INR,PT,PROTHROMBIN TIME [COAG] Timed 01/04/17 08:00 GLUCOSE POC LAB TO COLLECT [POC] BIDAC 01/04/17 17:00 GLUCOSE POC LAB TO COLLECT [POC] BIDAC 01/05/17 08:00 GLUCOSE POC LAB TO COLLECT [POC] BIDAC 01/05/17 17:00 GLUCOSE POC LAB TO COLLECT [POC] BIDAC 01/06/17 08:00 GLUCOSE POC LAB TO COLLECT [POC] BIDAC 01/06/17 17:00 GLUCOSE POC LAB TO COLLECT [POC] BIDAC 01/07/17 08:00 GLUCOSE POC LAB TO COLLECT [POC] BIDAC 01/07/17 17:00 GLUCOSE POC LAB TO COLLECT [POC] BIDAC 01/08/17 08:00 GLUCOSE POC LAB TO COLLECT [POC] BIDAC - Plan Plan:: Assessment and plan - Facial and periorbital cellulitis - significant improvement with current antibiotics. Wound culture is growing gram-positive cocci with identification pending. She is not having fevers. -Continue vancomycin and Pip/Tazo -IV fluids at to keep open -Pain control -Follow-up cultures Diabetes mellitus type 2 - well controlled. -Continue metformin Paroxysmal atrial fibrillation - has been in sinus since ablation. -Continue home medications -Continue warfarin with daily INR Maintenance issues - - DVT prophylaxis - mechanical - GI prophylaxis - not indicated - Nutrition - consistent carbohydrate diet Disposition - anticipated discharged home after the hospital stay Chad Chase M.D.
[2017-01-04] MEDS: Piperacillin/Tazobactam/Dext 3.375 GM in Premix Bag 1 BAG IV SCH ×2 (00:15→06:23)
[2017-01-04] MEDS: Venlafaxine 75 MG Cap.ER PO SCH (08:22)
[2017-01-04] MEDS: Losartan 50 MG Tab PO SCH (08:22)
[2017-01-04] MEDS: Levothyroxine 100 MCG Tab PO SCH (08:23)
[2017-01-04] MEDS: Magnesium Oxide 400 MG Tab PO SCH (08:23)
[2017-01-04] MEDS: Lactobacillus Rhamnosus GG (Probiotic) Cap PO SCH ×2 (08:23→20:15)
[2017-01-04] MEDS: Diltiazem 120 MG Cap.CD PO SCH (08:23)
[2017-01-04] MEDS: Aspirin 81 MG Tab.EC PO SCH (08:23)
[2017-01-04] MEDS: Pantoprazole 40 MG Tab.CR PO SCH ×2 (08:23→17:02)
[2017-01-04] MEDS: Furosemide 20 MG Tab PO SCH (08:24)
[2017-01-04] MEDS: metFORMIN 500 MG Tab PO SCH (08:24)
[2017-01-04] MEDS: Glimepiride 2 MG Tab PO SCH (08:24)
--- NOTE | 2017-01-04 11:51 | PCM.PN ---
- General Info Date of Service: 01/04/17 Functional Status: Reports: pain controlled, tolerating diet - Review of Systems General: Denies: Fever HEENT: Denies: eye pain, headaches Systems Review Comment:: No acute events overnight. Essentially no pain in her face or forehead today. Swelling around the left eye has nearly completely resolved. No fevers. Culture is growing MRSA. - Patient Data Vitals - most recent: Last Vital Signs Temp 36.2 C 01/04/17 11:03 Pulse 65 01/04/17 11:03 Resp 16 01/04/17 11:03 BP 120/79 01/04/17 11:03 Pulse Ox 96 01/04/17 11:03 Weight - most recent: 113.852 kg I&O - last 24 hours: Intake & Output 01/03/17 01/04/17 01/04/17 22:59 06:59 14:59 Intake Total 1490 350 120 Output Total 1300 1000 Balance 190 350 -880 Lab Results last 24 hrs: Laboratory Results - last 24 hr 01/04/17 01/04/17 Range/Units 04:45 04:45 WBC 8.9 (4.5-11.0) K/uL RBC 4.05 (3.30-5.50) M/uL Hgb 11.1 L (12.0-15.0) g/dL Hct 35.8 L (36.0-48.0) % MCV 88 (80-98) fL MCH 27 (27-31) pg MCHC 31 L (32-36) % Plt Count 247 (150-400) K/uL PT 16.2 H (9.5-12.0) sec INR 1.49 H (0.80-1.20) Med Orders - Current: Current Medications Acetaminophen (Tylenol) 650 mg PO Q4H PRN PRN Reason: Pain (Mild 1-3)/fever Last Admin: 01/02/17 21:21 Dose: 650 mg Aspirin (Halfprin) 81 mg PO DAILY [facility] Last Admin: 01/04/17 08:23 Dose: 81 mg Diltiazem HCl (Cardizem Cd) 120 mg PO DAILY [facility] Last Admin: 01/04/17 08:23 Dose: 120 mg Furosemide (Lasix) 20 mg PO DAILY [facility] Last Admin: 01/04/17 08:24 Dose: 20 mg Glimepiride (Amaryl) 4 mg PO DAILY@0800 [facility] Last Admin: 01/04/17 08:24 Dose: 4 mg Sodium Chloride (Normal Saline) 1,000 mls @ 25 mls/hr IV ASDIRECTED [facility] Last Admin: 01/02/17 14:03 Dose: 25 mls/hr Vancomycin HCl 1.75 gm/ Sodium (Chloride) 250 mls @ 150 mls/hr IV Q12H [facility] Last Admin: 01/04/17 01:12 Dose: 150 mls/hr Lactobacillus Rhamnosus (Culturelle) 1 cap PO BID [facility] Last Admin: 01/04/17 08:23 Dose: 1 cap Levothyroxine Sodium (Synthroid) 100 mcg PO DAILY@0730 [facility] Last Admin: 01/04/17 08:23 Dose: 100 mcg Losartan Potassium (Cozaar) 50 mg PO DAILY [facility] Last Admin: 01/04/17 08:22 Dose: 50 mg Magnesium Oxide (Magnesium Oxide) 400 mg PO DAILY [facility] Last Admin: 01/04/17 08:23 Dose: 400 mg Metformin HCl (Glucophage) 1,000 mg PO DAILY@0800 [facility] Last Admin: 01/04/17 08:24 Dose: 1,000 mg Ondansetron HCl (Zofran Odt) 4 mg PO Q6H PRN PRN Reason: Nausea able to take PO Pantoprazole Sodium (Protonix) 40 mg PO BIDAC [facility] Last Admin: 01/04/17 08:23 Dose: 40 mg Polyethylene Glycol (Miralax) 17 gm PO DAILY PRN PRN Reason: Constipation Rosuvastatin Calcium (Crestor) 5 mg PO MoWeFr@0900 [facility] Last Admin: 01/03/17 08:06 Dose: 5 mg Sodium Chloride (Saline Flush) 10 ml FLUSH ASDIRECTED PRN PRN Reason: Keep Vein Open Venlafaxine HCl (Effexor Xr) 75 mg PO DAILY [facility] Last Admin: 01/04/17 08:22 Dose: 75 mg Warfarin Sodium (Coumadin) 6.25 mg PO DAILY@1300 [facility] Discontinued Medications Sodium Chloride (Normal Saline) 75 mls @ 3 mls/sec IV ONETIME ONE Stop: 01/02/17 10:21 Last Admin: 01/02/17 11:01 Dose: 3 mls/sec Sodium Chloride (Normal Saline) 1,000 mls @ 500 mls/hr IV ASDIRECTED [facility] Last Admin: 01/02/17 11:22 Dose: 500 mls/hr Piperacillin/Tazobactam/ (Dextrose 4.5 gm/ Premix) 100 mls @ 200 mls/hr IV Q6H [facility] Last Admin: 01/02/17 12:48 Dose: 200 mls/hr Vancomycin HCl 2.25 gm/ Sodium (Chloride) 250 mls @ 125 mls/hr IV ONETIME ONE Stop: 01/02/17 14:59 Last Admin: 01/02/17 14:00 Dose: 125 mls/hr Piperacillin/Tazobactam/ (Dextrose 3.375 gm/ Premix) 50 mls @ 100 mls/hr IV Q6H [facility] Last Admin: 01/04/17 06:23 Dose: 100 mls/hr Iopamidol (Isovue-300 (61%)) 100 ml IV . DIRECTED PRN PRN Reason: RADIOLOGY EXAM Stop: 01/02/17 10:21 Last Admin: 01/02/17 11:01 Dose: 100 ml Sodium Chloride (Saline Flush) 10 ml FLUSH ASDIRECTED PRN PRN Reason: Keep Vein Open Sodium Chloride (Saline Flush) 10 ml FLUSH ONETIME PRN PRN Reason: PER RADIOLOGY PROTOCOL Last Admin: 01/02/17 11:01 Dose: 10 ml - Exam Quality Assessment: No: supplemental oxygen General: alert, oriented, cooperative, no acute distress HEENT: Other (2.5x4 cm area of induration and erythema over central forehead with scab in the center. Eye swelling has resolved) Neck: supple Lungs: Normal respiratory effort Abdomen: soft, no distension Extremities: no edema - Problem List & Annotations (1) Periorbital cellulitis SNOMED Code(s): 181469341 Code(s): L03.213 - PERIORBITAL CELLULITIS Status: Acute Current Visit: Yes Qualifiers: Laterality: unspecified laterality Qualified Code(s): L03.213 - Periorbital cellulitis (2) Abscess or cellulitis of forehead SNOMED Code(s): 571512831 Code(s): FFI1762 - Status: Acute Current Visit: Yes (3) Diabetes mellitus type 2 in obese SNOMED Code(s): 21244076 Code(s): E11.69 - TYPE 2 DIABETES MELLITUS WITH OTHER SPECIFIED COMPLICATION ; E66.9 - OBESITY, UNSPECIFIED Status: Chronic Current Visit: Yes - Problem List Review Problem List Initiated/Reviewed/Updated: Yes - My Orders Last 24 Hours: My Active Orders 01/04/17 12:45 VANCOMYCIN TROUGH [CHEM] Timed 01/04/17 13:00 Warfarin [Coumadin] 6.25 mg PO DAILY@1300 01/04/17 17:00 GLUCOSE POC LAB TO COLLECT [POC] BIDAC 01/05/17 08:00 GLUCOSE POC LAB TO COLLECT [POC] BIDAC 01/05/17 17:00 GLUCOSE POC LAB TO COLLECT [POC] BIDAC 01/06/17 08:00 GLUCOSE POC LAB TO COLLECT [POC] BIDAC 01/06/17 17:00 GLUCOSE POC LAB TO COLLECT [POC] BIDAC 01/07/17 08:00 GLUCOSE POC LAB TO COLLECT [POC] BIDAC 01/07/17 17:00 GLUCOSE POC LAB TO COLLECT [POC] BIDAC 01/08/17 08:00 GLUCOSE POC LAB TO COLLECT [POC] BIDAC - Plan Plan:: Assessment and plan - Facial and periorbital cellulitis - ongoing improvement. No fevers. Cultures growing MRSA. -Continue vancomycin and discontinue Pip/Tazo -IV fluids at to keep open -Pain control -Plan transitioned to doxycycline tomorrow Diabetes mellitus type 2 - well controlled. -Continue metformin Paroxysmal atrial fibrillation - has been in sinus since ablation. -Continue home medications -Continue warfarin with daily INR Maintenance issues - - DVT prophylaxis - mechanical - GI prophylaxis - not indicated - Nutrition - consistent carbohydrate diet Disposition - anticipated discharge to home after the hospital stay, likely tomorrow if stable overnight Chad Chase M.D.
[2017-01-04] MEDS ORDERED: Warfarin 2.5 MG Tab PO SCH (13:00)
[2017-01-04] MEDS: Sodium Chloride 0.9% 1,000 ML IV SCH (20:24)
[2017-01-05] MEDS: Pantoprazole 40 MG Tab.CR PO SCH (07:44)
[2017-01-05] MEDS: Levothyroxine 100 MCG Tab PO SCH (07:44)
[2017-01-05] MEDS: metFORMIN 500 MG Tab PO SCH (07:45)
[2017-01-05] MEDS: Glimepiride 2 MG Tab PO SCH (07:45)
[2017-01-05] MEDS: Magnesium Oxide 400 MG Tab PO SCH (08:46)
[2017-01-05] MEDS: Lactobacillus Rhamnosus GG (Probiotic) Cap PO SCH (08:46)
[2017-01-05] MEDS: Losartan 50 MG Tab PO SCH (08:46)
[2017-01-05] MEDS: Furosemide 20 MG Tab PO SCH (08:47)
[2017-01-05] MEDS: Rosuvastatin 10 MG Tab PO SCH (08:47)
[2017-01-05] MEDS: Venlafaxine 75 MG Cap.ER PO SCH (08:47)
[2017-01-05] MEDS: Aspirin 81 MG Tab.EC PO SCH (08:47)
[2017-01-05 08:48] VITALS: BP 110/73
[2017-01-05] MEDS: Diltiazem 120 MG Cap.CD PO SCH (08:48)
[2017-01-05] MEDS ORDERED: Doxycycline 100 MG Cap PO SCH (10:00)
--- NOTE | 2017-01-05 10:06 | PCM.DCSUM1 ---
Discharge Summary - Hospital Course Brief History: 71-year-old female with diabetes and history of paroxysmal atrial fibrillation who presented with progressive forehead and facial redness, erythema and swelling. She was admitted for management of facial and periorbital cellulitis. - Discharge Data Discharge Date: 01/05/17 Discharge Disposition: Home, Self-Care 01 Condition: Good - Discharge Diagnosis/Problem(s) (1) Periorbital cellulitis SNOMED Code(s): 132322731 ICD Code: L03.213 - PERIORBITAL CELLULITIS Status: Acute Qualifiers: Laterality: unspecified laterality Qualified Code(s): L03.213 - Periorbital cellulitis (2) Abscess or cellulitis of forehead SNOMED Code(s): 161712647 ICD Code: [id number] - Status: Acute (3) Diabetes mellitus type 2 in obese SNOMED Code(s): 56904927 ICD Code: E11.69 - TYPE 2 DIABETES MELLITUS WITH OTHER SPECIFIED COMPLICATION ; E66.9 - OBESITY, UNSPECIFIED Status: Chronic - Patient Summary/Data Hospital Course: Meghann presented to the emergency room with progressive swelling involving her forehead eyes and face despite outpatient antibiotics. Workup in the emergency room revealed evidence for fairly extensive cellulitis and small for had abscess formation. There is no evidence for deeper infection based on CT scan imaging. A sample of the purulent drainage was obtained from the emergency room and sent for culture. She was started on vancomycin and Pip/tazo empirically. over the next 24 hours she showed a fair amount of improvement in the swelling involving her forehead and left face. The morning after discharge we did express some more purulent material from the bridgett lesion. Continued antibiotics through the hospital day #2. This morning the culture returned growing MRSA in the Pip/Tazo was discontinued. We elected to continue antibiotics for one additional day given the improving but still fairly impressive swelling involving the face and fore head. By hospital day 3, the day of discharge, the swelling is dramatically improved and has nearly resolved. She does have some mild swelling left in the center of her fore head where the abscess which has been drained was originally located. There is only mild surrounding erythema and induration with dramatic improvement. No active drainage or fluctuance noted. Based on sensitivities I have elected to transition her antibiotic coverage to doxycycline. She will continue this for one additional week giving her a total of 10 days of therapy. She will be consuming yogurt to help maintain bowel health while she's on antibiotics. She is aware of the potential side effects of doxycycline including gastrointestinal upset and increased skin sensitivity to the sun. - Patient Instructions Diet: Diabetic Diet Activity: As Tolerated Driving: May Drive Today Showering/Bathing: May Shower Notify Provider of: Fever, Increased Pain, Swelling and Redness, Drainage Other/Special Instructions: 1. You were in the hospital for management of facial and the periorbita of cellulitis caused by methicillin-resistant staph aureus (MRSA). Your infection has improved significantly. I do recommend 7 additional days of antibiotic therapy with doxycycline. You will take this medication twice daily with food and your first dose is due tonight. This medication can make your skin more sensitive to sunlight so you should take proper precautions such as sunscreen and or covering exposed skin during daylight hours. I would also recommend that you take a probiotic or eat plenty of yogurt while you are taking antibiotics. 2. Continue your usual home medications including warfarin as previously prescribed. 3. Please seek medical attention if you develop fever greater than 101, have worsening of the redness and/or swelling of your forehead, you develop persistent vomiting or diarrhea or have visual difficulties. - Discharge Plan Prescriptions/Med Rec: Doxycycline Hyclate 100 mg PO BID #14 capsule Home Medications: Home Meds Aspirin [Adult Low Dose Aspirin [facility]] 81 mg PO DAILY 05/08/13 [History] Furosemide [Lasix] 20 mg PO DAILY 05/08/13 [History] Pantoprazole [ProTONIX] 40 mg PO BID 05/08/13 [History] Venlafaxine HCl [Venlafaxine ER] 75 mg PO DAILY 05/08/13 [History] metFORMIN [Glucophage] 1,000 mg PO DAILY 05/08/13 [History] Calcium Citrate 400 mg PO BID 12/10/14 [History] Losartan [Cozaar] 50 mg PO DAILY 12/10/14 [History] Albuterol Sulfate [Proair Hfa] 1 - 2 puff INH Q4H PRN 01/02/17 [History] Ammonium Lactate [Amlactin 12% Lotion] 1 applic TOP BID 01/02/17 [History] Clindamycin HCl 300 mg PO Q6H 01/02/17 [History] Diltiazem HCl [Cardizem Cd] 120 mg PO DAILY 01/02/17 [History] Glimepiride 4 mg PO DAILY 01/02/17 [History] Levothyroxine [Synthroid] 100 mcg PO DAILY 01/02/17 [History] Magnesium Oxide 1 tab PO DAILY 01/02/17 [History] Rosuvastatin [Crestor] 5 mg PO ASDIRECTED 01/02/17 [History] Warfarin [Coumadin] 2.5 mg PO ASDIRECTED 01/02/17 [History] metroNIDAZOLE [Metrogel] 1 applic TOP ASDIRECTED 01/02/17 [History] Doxycycline Hyclate 100 mg PO BID #14 capsule 01/05/17 [Rx] Patient Handouts: Cellulitis, Adult, Doxycycline tablets or capsules Referrals: Mauricio Vallejo MD [Primary Care Provider] - (followup if your symptoms do not continue to get better or they get worse) - Discharge Summary/Plan Comment DC Time >30 min.: No (25) - Patient Data Vitals - Most Recent: Last Vital Signs Temp 36.9 C 01/05/17 07:23 Pulse 73 01/05/17 08:48 Resp 16 01/05/17 07:23 BP 110/73 01/05/17 08:48 Pulse Ox 95 01/05/17 07:23 Weight - Most Recent: 113.852 kg I&O - Last 24 hours: Intake & Output 01/04/17 01/05/17 01/05/17 22:59 06:59 14:59 Intake Total 2240 250 Output Total 1000 900 Balance 1240 -650 Lab Results - Last 24 hrs: Laboratory Results - last 24 hr 01/04/17 Range/Units 12:40 Vancomycin Trough 16.6 (10.0-20.0) ug/mL Med Orders - Current: Current Medications Acetaminophen (Tylenol) 650 mg PO Q4H PRN PRN Reason: Pain (Mild 1-3)/fever Last Admin: 01/02/17 21:21 Dose: 650 mg Aspirin (Halfprin) 81 mg PO DAILY [facility] Last Admin: 01/05/17 08:47 Dose: 81 mg Diltiazem HCl (Cardizem Cd) 120 mg PO DAILY [facility] Last Admin: 01/05/17 08:48 Dose: 120 mg Doxycycline Hyclate (Vibramycin) 100 mg PO Q12H [facility] Furosemide (Lasix) 20 mg PO DAILY [facility] Last Admin: 01/05/17 08:47 Dose: 20 mg Glimepiride (Amaryl) 4 mg PO DAILY@0800 [facility] Last Admin: 01/05/17 07:45 Dose: 4 mg Sodium Chloride (Normal Saline) 1,000 mls @ 25 mls/hr IV ASDIRECTED [facility] Last Admin: 01/04/17 20:24 Dose: 25 mls/hr Lactobacillus Rhamnosus (Culturelle) 1 cap PO BID [facility] Last Admin: 01/05/17 08:46 Dose: 1 cap Levothyroxine Sodium (Synthroid) 100 mcg PO DAILY@0730 [facility] Last Admin: 01/05/17 07:44 Dose: 100 mcg Losartan Potassium (Cozaar) 50 mg PO DAILY [facility] Last Admin: 01/05/17 08:46 Dose: 50 mg Magnesium Oxide (Magnesium Oxide) 400 mg PO DAILY [facility] Last Admin: 01/05/17 08:46 Dose: 400 mg Metformin HCl (Glucophage) 1,000 mg PO DAILY@0800 [facility] Last Admin: 01/05/17 07:45 Dose: 1,000 mg Ondansetron HCl (Zofran Odt) 4 mg PO Q6H PRN PRN Reason: Nausea able to take PO Pantoprazole Sodium (Protonix) 40 mg PO BIDAC [facility] Last Admin: 01/05/17 07:44 Dose: 40 mg Polyethylene Glycol (Miralax) 17 gm PO DAILY PRN PRN Reason: Constipation Rosuvastatin Calcium (Crestor) 5 mg PO MoWeFr@0900 [facility] Last Admin: 01/05/17 08:47 Dose: 5 mg Sodium Chloride (Saline Flush) 10 ml FLUSH ASDIRECTED PRN PRN Reason: Keep Vein Open Venlafaxine HCl (Effexor Xr) 75 mg PO DAILY [facility] Last Admin: 01/05/17 08:47 Dose: 75 mg Warfarin Sodium (Coumadin) 6.25 mg PO DAILY@1300 [facility] Last Admin: 01/04/17 14:26 Dose: 6.25 mg Discontinued Medications Sodium Chloride (Normal Saline) 75 mls @ 3 mls/sec IV ONETIME ONE Stop: 01/02/17 10:21 Last Admin: 01/02/17 11:01 Dose: 3 mls/sec Sodium Chloride (Normal Saline) 1,000 mls @ 500 mls/hr IV ASDIRECTED [facility] Last Admin: 01/02/17 11:22 Dose: 500 mls/hr Piperacillin/Tazobactam/ (Dextrose 4.5 gm/ Premix) 100 mls @ 200 mls/hr IV Q6H [facility] Last Admin: 01/02/17 12:48 Dose: 200 mls/hr Vancomycin HCl 2.25 gm/ Sodium (Chloride) 250 mls @ 125 mls/hr IV ONETIME ONE Stop: 01/02/17 14:59 Last Admin: 01/02/17 14:00 Dose: 125 mls/hr Piperacillin/Tazobactam/ (Dextrose 3.375 gm/ Premix) 50 mls @ 100 mls/hr IV Q6H [facility] Last Admin: 01/04/17 06:23 Dose: 100 mls/hr Vancomycin HCl 1.75 gm/ Sodium (Chloride) 250 mls @ 150 mls/hr IV Q12H [facility] Last Admin: 01/05/17 01:17 Dose: 150 mls/hr Iopamidol (Isovue-300 (61%)) 100 ml IV . DIRECTED PRN PRN Reason: RADIOLOGY EXAM Stop: 01/02/17 10:21 Last Admin: 01/02/17 11:01 Dose: 100 ml Sodium Chloride (Saline Flush) 10 ml FLUSH ASDIRECTED PRN PRN Reason: Keep Vein Open Sodium Chloride (Saline Flush) 10 ml FLUSH ONETIME PRN PRN Reason: PER RADIOLOGY PROTOCOL Last Admin: 01/02/17 11:01 Dose: 10 ml *Q Meaningful Use (DIS) - VTE *Q VTE Criteria *Q: - Stroke *Q Stroke Criteria *Q: - AMI *Q AMI Criteria *Q:
== END 2017-01-05 11:28 | disposition home or self-care (01) | DRG 603 ==
LOC: JP.ED 09:11 → JP.MS 12:33
PROVIDERS: ADMIT Internal Medicine; ATTEND Internal Medicine
DX: L03.213 Periorbital cellulitis (principal); L02.01 Cutaneous abscess of face; B95.62 Methicillin resistant Staphylococcus aureus infection as the cause of diseases classified elsewhere; L03.211 Cellulitis of face; I10 Essential (primary) hypertension; I48.0 Paroxysmal atrial fibrillation; E11.9 Type 2 diabetes mellitus without complications; E03.9 Hypothyroidism, unspecified; Z79.82 Long term (current) use of aspirin; Z79.01 Long term (current) use of anticoagulants; Z79.84 Long term (current) use of oral hypoglycemic drugs; E78.00 Pure hypercholesterolemia, unspecified; K21.9 Gastro-esophageal reflux disease without esophagitis; Z88.2 Allergy status to sulfonamides; Z88.7 Allergy status to serum and vaccine; Z88.8 Allergy status to other drugs, medicaments and biological substances
CPT/HCPCS: 36415; 70487 ×2; 80053; 82962; 83605; 85025; 85610; 87040 ×2; 87070; 87077; 87186; 87205; 96361; 96365; 96368; 96376; 99284; 99285; J7030; J7040; J7050; Q9967; 80048; 80202; 85027; A9270-GY; J2543; J3370

== ENCOUNTER 2019-01-15 09:32 | Emergency (ER) | payer MEDICARE, BC ==
[2019-01-15] MEDS ORDERED: Ketorolac 30 MG/ML SDV IM ONE (10:26)
--- NOTE | 2019-01-15 10:31 | EDM.PDOC ---
ED HPI GENERAL MEDICAL PROBLEM - General Chief Complaint: Chest Pain Stated Complaint: HEART ISSUES Time Seen by Provider: 01/15/19 10:21 Source of Information: Reports: Patient, Family, RN Notes Reviewed History Limitations: Reports: No Limitations - History of Present Illness INITIAL COMMENTS - FREE TEXT/NARRATIVE: 73-year-old female presents emergency department today complaint of shoulder pain on the left side that radiates into her chest, she states his been going on for a week has progressively gotten worse is no shortness of breath no nausea vomiting no diaphoresis, she is concerned about cardiac issues. She denies any repetitive motion injury Left Arm Pain Score (Numeric/FACES): 4 - Related Data Allergies Allergy/AdvReac Type Severity Reaction Status Date / Time atorvastatin [From Lipitor] Allergy Muscle Verified 01/15/19 09:49 Aches pneumococcal vaccine Allergy Rash Verified 01/15/19 09:49 [Pneumococcal Vaccine] pravastatin Allergy Muscle Verified 01/15/19 09:49 Aches silver sulfadiazine Allergy Rash Verified 01/15/19 09:49 [From Silvadene] Sulfa (Sulfonamide Allergy Rash Verified 01/15/19 09:49 Antibiotics) trazodone Allergy Swelling Verified 01/15/19 09:49 Home Meds: Home Meds Aspirin [Adult Low Dose Aspirin EC] 81 mg PO DAILY 05/08/13 [History] Furosemide [Lasix] 20 mg PO DAILY 05/08/13 [History] Pantoprazole [ProTONIX Granules] 40 mg PO BID 05/08/13 [History] metFORMIN [Glucophage] 1,000 mg PO BID 05/08/13 [History] Calcium Citrate 400 mg PO BID 12/10/14 [History] Losartan [Cozaar] 50 mg PO DAILY 12/10/14 [History] Diltiazem HCl [Cardizem Cd] 120 mg PO DAILY 01/02/17 [History] Levothyroxine [Synthroid] 100 mcg PO DAILY 01/02/17 [History] Magnesium Oxide 500 mg PO DAILY 01/02/17 [History] Dextromethorphan HBr/Chlor-Mal [Coricidin Hbp Cough & Cold] 1 each PO ASDIRECTED PRN 05/03/18 [History] Ergocalciferol (Vitamin D2) [Vitamin D2] 2,000 unit PO DAILY 05/03/18 [History] Rosuvastatin [Crestor] 5 mg PO DAILY 05/03/18 [History] Warfarin [Coumadin] 6.25 mg PO SUMOWEFR 05/03/18 [History] Warfarin [Coumadin] 7.5 mg PO ASDIRECTED 05/03/18 [History] Escitalopram [Lexapro] 10 mg PO DAILY 01/15/19 [History] Saliva Substitution Combo No.9 [Biotene] 1,000 mg PO DAILY 01/15/19 [History] Past Medical History HEENT History: Reports: Cataract, Impaired Vision Cardiovascular History: Reports: Afib, High Cholesterol, Hypertension, Other ( See Below) Other Cardiovascular History: history of cardiac ablation Respiratory History: Reports: Sleep Apnea Gastrointestinal History: Reports: GERD Genitourinary History: Reports: None PAYROLL TAX SPECIALIST History: Reports: , Other (See Below) Other PAYROLL TAX SPECIALIST History: partial hysterectomy Musculoskeletal History: Reports: Fracture Other Musculoskeletal History: broken arm just below shoulder Psychiatric History: Reports: Depression Endocrine/Metabolic History: Reports: Diabetes, Type II, Hypothyroidism Hematologic History: Reports: Anticoagulation Therapy Dermatologic History: Reports: None - Infectious Disease History Infectious Disease History: Reports: Chicken Pox, Measles, MRSA - Past Surgical History Head Surgeries/Procedures: Reports: None HEENT Surgical History: Reports: Oral Surgery, Tonsillectomy Cardiovascular Surgical History: Reports: Other (See Below) Other Cardiovascular Surgeries/Procedures: ablation Respiratory Surgical History: Reports: None GI Surgical History: Reports: Appendectomy, Cholecystectomy, Colonoscopy, EGD, Esophageal Dilatation, Other (See Below) Other GI Surgeries/Procedures: part of colon removed and resection Female Surgical History: Reports: Hysterectomy Endocrine Surgical History: Reports: None Musculoskeletal Surgical History: Reports: Other (See Below) Other Musculoskeletal Surgeries/Procedures:: left wrist fx repair Dermatological Surgical History: Reports: Skin Biopsy Social & Family History - Family History Family Medical History: Noncontributory Cardiac: Reports: Afib - Tobacco Use Smoking Status *Q: Never Smoker - Caffeine Use Caffeine Use: Reports: Coffee, Soda, Tea Caffeine Use Comment: rarely - Recreational Drug Use Recreational Drug Use: No ED ROS GENERAL - Review of Systems Review Of Systems: See Below Constitutional: Reports: No Symptoms HEENT: Reports: No Symptoms Respiratory: Reports: No Symptoms Cardiovascular: Reports: Chest Pain Endocrine: Reports: Low Glucose GI/Abdominal: Reports: No Symptoms : Reports: No Symptoms Musculoskeletal: Reports: Shoulder Pain ED EXAM, GENERAL - Physical Exam Exam: See Below Free Text/Narrative:: Examination of the shoulder I don't appreciate any erythema there is no rash there is no specific point tenderness she has full range of motion without tenderness Exam Limited By: No Limitations General Appearance: Alert, WD/WN, No Apparent Distress Respiratory/Chest: No Respiratory Distress, Lungs Clear, Normal Breath Sounds, No Accessory Muscle Use, Chest Non-Tender Cardiovascular: Regular Rate, Rhythm, No Murmur GI/Abdominal: Soft, Non-Tender Course - Vital Signs Last Recorded V/S: Last Vital Signs Temp 97.1 F 01/15/19 09:45 Pulse 52 L 01/15/19 11:38 Resp 14 01/15/19 11:38 BP 122/54 L 01/15/19 10:37 Pulse Ox 96 01/15/19 11:38 - Orders/Labs/Meds Orders: Active Orders 24 hr Category Date Time Status Cardiac Monitoring [RC] .As Directed Care 01/15/19 10:26 Active EKG Documentation Completion [RC] ASDIRECTED Care 01/15/19 10:26 Active EKG 12 Lead [EK] Stat Ther 01/15/19 10:26 Ordered Labs: Laboratory Tests 01/15/19 01/15/19 01/15/19 Range/Units 10:36 10:36 10:36 WBC 6.1 (4.5-11.0) K/uL RBC 3.93 (3.30-5.50) M/uL Hgb 10.2 L (12.0-15.0) g/dL Hct 33.7 L (36.0-48.0) % MCV 86 (80-98) fL MCH 26 L (27-31) pg MCHC 30 L (32-36) % Plt Count 272 (150-400) K/uL Neut % (Auto) 57 (36-66) % Lymph % (Auto) 32 (24-44) % [place] % (Auto) 7 H (2-6) % Eos % (Auto) 3 (2-4) % Baso % (Auto) 1 (0-1) % PT 23.4 H (9.5-12.0) sec INR 2.23 H (0.80-1.20) Sodium 139 L (140-148) mmol/L Potassium 5.0 (3.6-5.2) mmol/L Chloride 103 (100-108) mmol/L Carbon Dioxide 30 (21-32) mmol/L Anion Gap 11.0 (5.0-14.0) mmol/L BUN 18 D (7-18) mg/dL Creatinine 0.8 (0.6-1.0) mg/dL Est Cr Clr Drug Dosing 57.20 mL/min Estimated GFR (MDRD) > 60 (>60) Glucose 95 (74-106) mg/dL Calcium 9.0 (8.5-10.1) mg/dL Total Bilirubin 0.2 (0.2-1.0) mg/dL AST 14 L (15-37) U/L ALT 24 (12-78) U/L Alkaline Phosphatase 55 (46-116) U/L Troponin I < 0.017 (0.000-0.056) ng/mL Total Protein 6.9 (6.4-8.2) g/dL Albumin 3.0 L (3.4-5.0) g/dL Globulin 3.9 H (2.3-3.5) g/dL Albumin/Globulin Ratio 0.8 L (1.2-2.2) Meds: Medications Discontinued Medications Generic Name Dose Route Start Last Admin Trade Name Freq PRN Reason Stop Dose Admin Ketorolac Tromethamine 30 mg 01/15/19 10:26 01/15/19 10:41 Toradol IM 01/15/19 10:27 30 mg ONETIME ONE Administration Departure - Departure Time of Disposition: 12:25 Disposition: Home, Self-Care 01 Condition: Fair Clinical Impression: Left shoulder pain Left shoulder pain Qualifiers: Chronicity: acute Qualified Code(s): M25.512 - Pain in left shoulder Referrals: Mauricio Vallejo MD [Primary Care Provider] - Forms: ED Department Discharge Additional Instructions: Continue to use Tylenol as needed for pain control, Please followup with your primary care provider in 3-5 days if not better, please call return to the emergency department with worsening of symptoms. - My Orders Last 24 Hours: My Active Orders 01/15/19 10:26 Cardiac Monitoring [RC] .As Directed EKG Documentation Completion [RC] ASDIRECTED EKG 12 Lead [EK] Stat - Assessment/Plan Last 24 Hours: My Active Orders 01/15/19 10:26 Cardiac Monitoring [RC] .As Directed EKG Documentation Completion [RC] ASDIRECTED EKG 12 Lead [EK] Stat Plan: Assessment Acuity = acute Site and laterality = left shoulder pain Etiology = underlying degenerative joint disease Manifestations = none Location of injury = Home Lab values = hemoglobin low 10.2 consistent normochromic anemia, CMP unremarkable, EKG reveals normal sinus rhythm no sign of ischemia, troponin was negative, chest x-ray no acute disease, shoulder x-ray does reveal degenerative joint disease Plan I did review blood work EKG and chest x-ray results with her she is given follow -up with her primary care in 3-5 days for reevaluation she will continue to use Tylenol as needed for pain control This note was dictated using [employer] voice recognition software please call with any questions on syntax or grammar.
[2019-01-15 10:38] VITALS: BP 122/54
[2019-01-15 11:39] VITALS: PULSE 52
--- NOTE | 2019-01-15 12:04 | CRLCR ---
HISTORY: Chest pain. TECHNIQUE: Two views of the chest. COMPARISON: 10/21/2015. FINDINGS: Low lung volumes. No focal lung infiltrate or pulmonary edema. No pneumothorax or pleural effusion. Cardiac size upper limits of normal. Degenerative changes of the spine. IMPRESSION: 1. Low lung volumes. 2. No focal lung infiltrate or pulmonary edema. Dictated by Jin Gonzalez MD @ 01/15/2019 12:01:37 PM Dictated by: Jin Gonzalez MD @ 01/15/2019 12:01:41 (Electronically Signed)
--- NOTE | 2019-01-15 12:04 | CRLCR ---
HISTORY: Left shoulder pain. TECHNIQUE: Four views of the left shoulder. COMPARISON: No prior. FINDINGS: No acute fracture or dislocation. Minor glenohumeral joint degenerative changes. Mild AC joint degenerative changes. Chronic reactive sclerosis involving greater tuberosity. No abnormality within the included portion of left lung. IMPRESSION: 1. No fracture or dislocation. 2. Mild degenerative changes. Dictated by Jin Gonzalez MD @ 01/15/2019 12:03:13 PM Dictated by: Jin Gonzalez MD @ 01/15/2019 12:03:16 (Electronically Signed)
== END 2019-01-15 12:47 | disposition home or self-care (01) ==
LOC: JP.ED 09:32
DX: M19.012 Primary osteoarthritis, left shoulder (principal); I10 Essential (primary) hypertension; E78.00 Pure hypercholesterolemia, unspecified; E11.9 Type 2 diabetes mellitus without complications; E03.9 Hypothyroidism, unspecified; I48.91 Unspecified atrial fibrillation; Z79.01 Long term (current) use of anticoagulants; Z79.82 Long term (current) use of aspirin; Z79.899 Other long term (current) drug therapy; Z79.84 Long term (current) use of oral hypoglycemic drugs; Z88.7 Allergy status to serum and vaccine; Z88.2 Allergy status to sulfonamides; Z88.8 Allergy status to other drugs, medicaments and biological substances
CPT/HCPCS: 36415; 71046; 73030; 80053; 84484; 85025; 85610; 93005; 96372; 99284; J1885; 93010; 99283

== ENCOUNTER 2019-12-05 07:16 | Inpatient (IN) | payer MEDICARE, BC ==
[2019-12-05] MEDS ORDERED: Acetaminophen 500 MG Tab PO ONE (07:30)
[2019-12-05] MEDS ORDERED: Propofol 200 MG/20 ML SDV ONE (07:58)
[2019-12-05] MEDS ORDERED: Glycopyrrolate 0.2 MG/ML 5 ML MDV ONE (07:58)
[2019-12-05] MEDS ORDERED: Neostigmine Methylsulfate 1 MG/ML 5 ML Syringe ONE (07:58)
[2019-12-05] MEDS ORDERED: Dexamethasone 4 MG/ML SDV ONE (07:58)
[2019-12-05] MEDS ORDERED: Succinylcholine 200 MG/10 ML MDV ONE (07:58)
[2019-12-05] MEDS ORDERED: Rocuronium 50 MG/5 ML Vial ONE (07:58)
[2019-12-05] MEDS ORDERED: Ondansetron 4 MG/2 ML SDV ONE (07:58)
[2019-12-05] MEDS ORDERED: fentaNYL 250 MCG/5 ML SDV ONE ×2 (07:59→11:11)
[2019-12-05] MEDS ORDERED: ceFAZolin 2 GM in Premix Bag 1 BAG IV ONE (08:00)
[2019-12-05] MEDS: Dextrose 5%-Lactated Ringers 1,000 ML IV SCH ×2 (08:26→23:07)
[2019-12-05] MEDS ORDERED: Naloxone 0.4 MG/ML SDV IVPUSH PRN (11:58)
[2019-12-05] MEDS ORDERED: HYDROmorphone/Normal Saline 15 MG/30 ML PCA IV PRN (11:58)
[2019-12-05] MEDS ORDERED: Ondansetron 4 MG/2 ML SDV IVPUSH PRN ×2 (11:58→14:01)
[2019-12-05] MEDS ORDERED: diphenhydrAMINE 50 MG/ML SDV IVPUSH PRN (11:58)
[2019-12-05] MEDS ORDERED: diphenhydrAMINE 25 MG Cap PO PRN (11:58)
[2019-12-05] MEDS ORDERED: Naloxone 0.4 MG/ML SDV IV PRN (12:00)
[2019-12-05] MEDS ORDERED: Insulin Lispro 100 Unit/ML 3 ML KwikPen SUBCUT PRN ×2 (12:21→12:24)
[2019-12-05] MEDS ORDERED: Glucose Gel 15 GM in 37.5 GM Tube PO PRN (12:21)
[2019-12-05] MEDS ORDERED: 50% Dextrose in Water 50 ML Syringe IVPUSH PRN (12:21)
[2019-12-05] MEDS ORDERED: Glucagon,Human Recombinant 1 MG Vial IM PRN (12:21)
[2019-12-05] MEDS: Insulin Lispro 100 Unit/ML 3 ML KwikPen SUBCUT PRN ×3 (12:30→22:08)
[2019-12-05] MEDS ORDERED: HYDROmorphone 1 MG/ML Syringe IV PRN (14:01)
[2019-12-05] MEDS ORDERED: hydrOXYzine HCL 100 MG/2 ML SDV IM PRN (14:01)
[2019-12-05] MEDS: HYDROmorphone 0.5 MG/0.5 ML Syringe IVPUSH PRN ×2 (14:55→20:25)
[2019-12-05] MEDS ORDERED: Pantoprazole 40 MG Vial IVPUSH SCH (16:00)
[2019-12-05] MEDS ORDERED: Warfarin 5 MG Tab PO ONE (16:00)
[2019-12-05] MEDS: metFORMIN 500 MG Tab PO SCH (17:34)
[2019-12-05] MEDS: Acetaminophen 500 MG Tab PO SCH ×2 (17:34→22:07)
[2019-12-05] MEDS: ceFAZolin 2 GM in Premix Bag 1 BAG IV SCH (17:34)
[2019-12-06] MEDS: ceFAZolin 2 GM in Premix Bag 1 BAG IV SCH (02:47)
[2019-12-06] MEDS: Acetaminophen 500 MG Tab PO SCH ×2 (05:19→10:04)
[2019-12-06 07:26] VITALS: BP 116/65; PULSE 63
[2019-12-06] MEDS ORDERED: HYDROmorphone 2 MG Tab PO PRN (07:29)
[2019-12-06] MEDS ORDERED: Levothyroxine 100 MCG Tab PO SCH (07:30)
[2019-12-06] MEDS ORDERED: Pantoprazole 40 MG Tab.CR PO SCH (07:30)
[2019-12-06] MEDS ORDERED: Acetaminophen 325 MG Tab PO PRN (07:31)
[2019-12-06] MEDS: Warfarin 5 MG Tab PO ONE ×2 (08:45→09:59)
[2019-12-06] MEDS: metFORMIN 500 MG Tab PO SCH (08:45)
[2019-12-06] MEDS: Enoxaparin 150 MG/1 ML Syringe SUBCUT ONE ×2 (08:45→09:59)
[2019-12-06] MEDS ORDERED: Aspirin 81 MG Tab.EC PO SCH (09:00)
[2019-12-06] MEDS ORDERED: Losartan 50 MG Tab PO SCH (09:00)
[2019-12-06] MEDS ORDERED: Furosemide 20 MG Tab PO SCH (09:00)
[2019-12-06] MEDS ORDERED: Venlafaxine 75 MG Cap.ER PO SCH (09:00)
[2019-12-06] MEDS ORDERED: Diltiazem 120 MG Cap.CD PO SCH (09:00)
--- NOTE | 2019-12-08 12:12 | DISCH ---
FINAL DIAGNOSIS: Right thyroid nodule with cytologic atypia on fine-needle aspiration. SECONDARY DIAGNOSES: 1. Type 2 diabetes mellitus. 2. Hypertension. 3. Obstructive sleep apnea. 4. History of atrial fibrillation. 5. Gastroesophageal reflux disease. OPERATIVE PROCEDURE: This was done on 12/04, thyroid exploration with right thyroid lobectomy, isthmusectomy including excision of portion of substernal right thyroid lobe. SUMMARY: This is a 74-year-old female presenting with clinically somewhat enlarged thyroid. Workup included an ultrasound showing a 1.8 cm somewhat irregular thyroid nodule with some calcifications. Fine-needle aspiration showed follicular cells but suggested some atypia, and the patient opted to proceed with the thyroid lobectomy for a definitive diagnosis. This was accomplished on the date of the procedure. Grossly, the thyroid lobe was somewhat suspicious for Roberta's type disease, and it was white and somewhat leathery in appearance. Pathology is obviously pending. Postoperatively, she has had no significant problems and will be discharged home with full activity and regular diet. In addition to her usual medications, she was given a prescription for Dilaudid 2 mg p.o. q.4 hours p.r.n. pain #20. Her Coumadin anticoagulation has been reversed, and she will receive Lovenox 150 mg subcu today and then following 3 days and then restarting the Coumadin. She will be checking with [facility] this coming . FRANCISCO J
--- NOTE | 2019-12-10 16:42 | OR ---
DATE OF PROCEDURE: 12/05/2019 SURGEON: Albino Gaviria MD PREOPERATIVE DIAGNOSIS: Right thyroid nodule showing cytologic atypia on fine-needle aspiration. POSTOPERATIVE DIAGNOSES: 1. Right thyroid nodule showing cytologic atypia on fine-needle aspiration. 2. Substernal component to right thyroid lobe. OPERATIVE PROCEDURES: Right thyroid lobectomy and isthmusectomy, including excision of substernal thyroid component (58588). ANESTHESIA: General. SIEVE GRADER TENDER: Veronica Gonzalez PA-C INDICATIONS FOR PROCEDURE: This is a 74-year-old, presenting with some clinically larger thyroid. Ultrasound was obtained which showed a radiologically suspicious right thyroid nodule. Fine-needle aspiration of this showed some follicular type cells, but some cytologic atypia was identified. After preoperative evaluation and discussion with the patient and daughter, they wished to avoid any uncertainty regarding the diagnosis and wished to proceed with a right thyroid lobectomy. 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 So, they are aware of the possible need for secondary procedure if a malignancy is identified. Potential risks per se including bleeding, infection, injury to recurrent laryngeal nerve with chronic focal changes, possible injury to the parathyroid glands which if the contralateral thyroid needed to be at some point removed could potentially result in long-term hypoparathyroidism were all gone over, and the patient wishes to proceed. DETAILS OF PROCEDURE: The patient was taken to the operating room and placed in a supine position. After general endotracheal anesthesia was induced, rolls were placed underneath the shoulders and the upper chest and neck areas were then prepped and draped. Two fingerbreadths above the sternal notch, a transverse incision was made in the pre-existing skin crease. The collar incision was carried down through the skin and subcutaneous tissue and platysmal layers. Subplatysmal flaps were then raised superiorly and inferiorly, and the strap muscles divided in the midline. Palpation of the left thyroid showed no significant abnormalities. This area was not dissected so as to avoid the resulting scar that dissection would create and in the event of such, a procedure would need to be done on that side. The strap muscles were then dissected off the thyroid capsule on the right side. Inferior thyroid vein was then divided with Sonicision and the upper pole was then isolated and divided with Sonicision as well. This allowed a medial mobilization of the thyroid gland on the right side. There was a significant substernal component of this, which was at this point mobilized up from underneath the clavicle and sternal areas. The middle thyroid vein was then divided with Sonicision as well. This then allowed further medial mobilization. The inferior thyroid artery branches were then taken flush with the capsule and the artery then reflected away from the capsule, preserving blood supply to the parathyroid glands. At this point, the junction of the isthmus and the left thyroid lobe were divided with Sonicision and the remaining attachments to the trachea were taken off with Sonicision as well. Care was taken to avoid injury to the recurrent laryngeal nerve as it entered the area of the ligament of Carranza area. At this point, the specimen was delivered from the field. The area was inspected. No bleeding or other problems were noted. The midline strap muscles were then approximated with 3-0 Vicryl stitch, the platysmal layer with 4-0 Vicryl stitch, and the skin with a 4-0 Vicryl subcuticular stitch. Dressing was applied. The patient was taken to the recovery room in satisfactory condition. Physician nursing assistants teacher, Veronica Gonzalez, played an essential role in assisting in this case; helping to position the patient, retract structures as needed, as well as suturing and cutting sutures when indicated. Her presence improved patient safety and decreased the operative time. Albino Gaviria MD /[id number]
== END 2019-12-06 11:00 | disposition home or self-care (01) | DRG 627 ==
LOC: JP.SDS 07:16 → JP.SDSSCHI 07:16 → EDSTATUS 09:00 → JP.MS 12:30
PROVIDERS: ADMIT Surgery; ATTEND Surgery
PROC: 0GBH0ZZ Excision of Right Thyroid Gland Lobe, Open Approach (ICD-10-PCS; principal; 2019-12-05)
PROC: 0GBJ0ZZ Excision of Thyroid Gland Isthmus, Open Approach (ICD-10-PCS; 2019-12-05)
DX: E06.3 Autoimmune thyroiditis (principal); E04.1 Nontoxic single thyroid nodule; E11.9 Type 2 diabetes mellitus without complications; I10 Essential (primary) hypertension; G47.33 Obstructive sleep apnea (adult) (pediatric); I48.91 Unspecified atrial fibrillation; K21.9 Gastro-esophageal reflux disease without esophagitis
CPT/HCPCS: 36415; 82962; 84443; 93005; 94762; A9270-GY; C9113; J0330; J0690; J1100; J1170; J1650; J1815; J2020; J2405; J2704; J2710; J3010; J3490; J7121

== ENCOUNTER 2019-12-18 07:51 | Inpatient (IN) | payer MEDICARE, BC ==
[~2019-12-18 07:51] MED LIST: HYDROmorphone/Normal Saline 15 MG/30 ML PCA IV PRN; Naloxone 0.4 MG/ML SDV IV PRN; Naloxone 0.4 MG/ML SDV IVPUSH PRN; Ondansetron 4 MG/2 ML SDV IVPUSH PRN; diphenhydrAMINE 25 MG Cap PO PRN; diphenhydrAMINE 50 MG/ML SDV IVPUSH PRN
[2019-12-18] MEDS ORDERED: Neostigmine Methylsulfate 1 MG/ML 5 ML Syringe ONE (08:44)
[2019-12-18] MEDS ORDERED: Rocuronium 50 MG/5 ML Vial ONE (08:44)
[2019-12-18] MEDS ORDERED: Dexamethasone 4 MG/ML SDV ONE (08:44)
[2019-12-18] MEDS ORDERED: Propofol 200 MG/20 ML SDV ONE (08:44)
[2019-12-18] MEDS ORDERED: Ondansetron 4 MG/2 ML SDV ONE (08:44)
[2019-12-18] MEDS ORDERED: Succinylcholine 200 MG/10 ML MDV ONE (08:44)
[2019-12-18] MEDS ORDERED: Glycopyrrolate 0.2 MG/ML 5 ML MDV ONE (08:44)
[2019-12-18] MEDS ORDERED: fentaNYL 250 MCG/5 ML SDV ONE ×2 (08:45→10:24)
[2019-12-18] MEDS: Dextrose 5%-Lactated Ringers 1,000 ML IV SCH (09:16)
[2019-12-18] MEDS ORDERED: ceFAZolin 2 GM in Premix Bag 1 BAG IV ONE (09:30)
[2019-12-18] MEDS ORDERED: Insulin Lispro 100 Unit/ML 3 ML KwikPen SUBCUT ONE (12:00)
[2019-12-18] MEDS ORDERED: 50% Dextrose in Water 50 ML Syringe IVPUSH PRN (12:45)
[2019-12-18] MEDS ORDERED: Glucose Gel 15 GM in 37.5 GM Tube PO PRN (12:45)
[2019-12-18] MEDS ORDERED: Glucagon,Human Recombinant 1 MG Vial IM PRN (12:45)
[2019-12-18] MEDS ORDERED: hydrOXYzine HCL 100 MG/2 ML SDV IM PRN (12:51)
[2019-12-18] MEDS ORDERED: Ondansetron 4 MG/2 ML SDV IVPUSH PRN (12:56)
[2019-12-18] MEDS: Magnesium Sulfate/Water 2 GM in Premix Bag 1 BAG IV SCH ×2 (15:37→20:17)
[2019-12-18] MEDS: Acetaminophen 500 MG Tab PO SCH ×2 (15:38→21:23)
[2019-12-18] MEDS ORDERED: Warfarin 5 MG Tab PO ONE (16:00)
[2019-12-18] MEDS: metFORMIN 500 MG Tab PO SCH (16:56)
[2019-12-18] MEDS: Insulin Lispro 100 Unit/ML 3 ML KwikPen SUBCUT PRN ×2 (16:56→21:23)
[2019-12-18] MEDS ORDERED: [UNRECOGNIZED DRUG - OTHER] PO PRN (16:59)
[2019-12-18] MEDS ORDERED: COLD PO PRN (16:59)
[2019-12-18] MEDS: ceFAZolin 2 GM in Premix Bag 1 BAG IV SCH (17:44)
[2019-12-18] MEDS ORDERED: ceFAZolin 2 GM in Premix Bag 1 BAG IV SCH (18:00)
[2019-12-19] MEDS: ceFAZolin 2 GM in Premix Bag 1 BAG IV SCH ×2 (01:43→09:40)
[2019-12-19] MEDS: Magnesium Sulfate/Water 2 GM in Premix Bag 1 BAG IV SCH ×3 (02:30→14:22)
[2019-12-19] MEDS: Acetaminophen 500 MG Tab PO SCH ×4 (05:05→21:39)
[2019-12-19] MEDS: Dextrose 5%-Lactated Ringers 1,000 ML IV SCH (06:16)
[2019-12-19] MEDS: metFORMIN 500 MG Tab PO SCH ×2 (07:47→16:32)
[2019-12-19] MEDS: Pantoprazole 40 MG Tab.CR PO SCH (07:47)
[2019-12-19] MEDS: HYDROmorphone 2 MG Tab PO PRN (07:57)
[2019-12-19] MEDS ORDERED: Warfarin 5 MG Tab PO ONE (09:00)
[2019-12-19] MEDS: Aspirin 81 MG Tab.EC PO SCH (09:35)
[2019-12-19] MEDS: Diltiazem 120 MG Cap.CD PO SCH (09:35)
[2019-12-19] MEDS: Losartan 50 MG Tab PO SCH (09:39)
[2019-12-19] MEDS: Furosemide 20 MG Tab PO SCH (09:39)
[2019-12-19] MEDS: Enoxaparin 150 MG/1 ML Syringe SUBCUT SCH (09:40)
--- NOTE | 2019-12-19 10:50 | PN ---
DATE OF SERVICE: 12/19/2019 SUBJECTIVE: Meghann is postop day 1. She states her pain is controlled. Vital signs have been stable. She has been up in the chair. Oral intake, clear liquid diet is 660. Urine output is 2250. NELLA drain, put out 10 mL of a light red drainage. REVIEW OF SYSTEMS: Remainder of review of systems negative for any pertinent positives and negatives. OBJECTIVE: GENERAL: Meghann Amador is a pleasant 74-year-old female. VITAL SIGNS: At 0725; 95.4, 55, 16, blood pressure 124/88. HEENT: Pressure dressing was taken off of neck. Steri-Strips intact. Incision healing well. NELLA drain intact as above. HEART: Regular rate and rhythm. LUNGS: Clear. ABDOMEN: Negative. EXTREMITIES: Without peripheral edema. ASSESSMENT: Thyroid exploration with completion of left thyroidectomy for papillary carcinoma involving right thyroid lobe, SP right thyroid lobectomy. Date of surgery, 12/18/2019. Surgeon, Albino Gaviria MD. PLAN: 1. Discontinue SONOGRAPHY TECHNICIAN, continuous pulse ox. 2. Coumadin 10 mg today, ask in a.m. 3. Dilaudid 2 mg to 4 mg every 4 hours p.r.n. pain. 4. Regular diet. 5. Change status to inpatient due to the patient's calcium decreasing from 9 to 8.4. 6. Labs are ordered to be checked in a.m. 7. The patient was instructed, if she developed any tingling around her mouth or fingertips, to notify nursing staff and they will in turn notify provider. 8. We will evaluate p.r.n. or in a.m. q.6 hours until the patient is discharged. Veronica Gonzalez PA-C /[id number]
[2019-12-20] MEDS: Acetaminophen 500 MG Tab PO SCH ×2 (05:20→09:14)
[2019-12-20] MEDS: Pantoprazole 40 MG Tab.CR PO SCH (07:31)
[2019-12-20] MEDS ORDERED: Warfarin 5 MG Tab PO ONE (09:00)
[2019-12-20] MEDS: HYDROmorphone 2 MG Tab PO PRN (09:02)
[2019-12-20] MEDS: metFORMIN 500 MG Tab PO SCH (09:09)
[2019-12-20] MEDS: Aspirin 81 MG Tab.EC PO SCH (09:10)
[2019-12-20] MEDS: Furosemide 20 MG Tab PO SCH (09:10)
[2019-12-20] MEDS: Losartan 50 MG Tab PO SCH (09:11)
[2019-12-20] MEDS: Diltiazem 120 MG Cap.CD PO SCH (09:12)
[2019-12-20] MEDS: Enoxaparin 150 MG/1 ML Syringe SUBCUT SCH (09:13)
[2019-12-20 09:15] VITALS: BP 140/75; PULSE 67
[2019-12-20] MEDS ORDERED: Ondansetron 4 MG Tab.DIS PO ONE (09:45)
--- NOTE | 2019-12-22 15:07 | DISCH ---
FINAL DIAGNOSES: Papillary carcinoma identified in recently resected right thyroid lobe. ADDITIONAL DIAGNOSES: 1. History of enlarged thyroid with treated hypothyroidism. 2. Type 2 diabetes mellitus. 3. Gastroesophageal reflux disease. 4. Atrial fibrillation. 5. Peripheral venous insufficiency. OPERATIVE PROCEDURES: This was done on 12/18/19, thyroid exploration with completion (left lobe) thyroidectomy. SUMMARY: This is a 74-year-old female, presenting recently with an enlarged thyroid. Ultrasound showed a 1.8 cm nodule and fine-needle aspiration showed some atypical cells. The patient elected to have this right lobe resected and this did come back showing a follicular variant papillary carcinoma. Given the size of 1.8 cm, it was felt best to treat this with a completion thyroidectomy and this was accomplished on the date of admission. Postoperatively, she had no significant problems. Her calciums are running in the low 8's and without symptoms, and she will be discharged home. She will require only Tylenol for pain. Her TSH on admission was in the mid 4's, and we would like to have this in a normal range, but there is a lower end of normal range. Given this, we will move her Synthroid dose up from 100 to 125 mcg a day. She is being bridged for the paroxysmal atrial fibrillation and we will have her resume her usual Coumadin dosing after a somewhat large dose given today and Lovenox 150 mg for 4 days post discharge. Followup will be with Dr. Gaviria at [facility] on 12/31/2019 at 10:00 a.m. At that time, we will obtain a PT, BMP, phos, and mag. She is instructed if she develops any perioral paresthesias that she can take some Tums p.r.n. and should contact us at that point. We will review the final pathology, and most likely we will have the patient carry a referral for Radiation Oncology to discuss whether or not I-131 diagnostic test and ablation of any remnant tissue would be valuable. If this is done, this makes it somewhat easier to follow the patient postoperatively by simply following thyroglobulin and thyroid antibody levels, rather than more intense imaging procedures.
--- NOTE | 2019-12-25 09:55 | OR ---
DATE OF PROCEDURE: 12/18/2019 SURGEON: Albino Gaviria MD PREOPERATIVE DIAGNOSIS: Papillary carcinoma involving right thyroid lobe, status post right thyroid lobectomy. POSTOPERATIVE DIAGNOSIS: Papillary carcinoma involving right thyroid lobe, status post right thyroid lobectomy. OPERATIVE PROCEDURES: Left thyroid exploration with completion thyroidectomy (remaining left thyroid lobe), ([id number]). ANESTHESIA: General. WIND TURBINE TECHNICIAN: Veronica Gonzalez PA-C. INDICATIONS FOR PROCEDURE: A 74-year-old patient presenting with a thyroid nodule in the right thyroid lobe, measuring 1.8 cm. Fine-needle aspiration of this showed some atypical cells, and the patient opted to proceed with a right thyroid lobectomy. Final pathology came back showing a follicular variant of papillary carcinoma, and plan is proceed with a completion thyroidectomy and removal of remaining left thyroid lobe to facilitate postoperative management. Potential risks of the procedure including bleeding, infection, and injury to the parathyroid glands and/or recurrent laryngeal nerve were reviewed, and the patient wishes to proceed. DETAILS OF PROCEDURE: The patient was taken to the operating room and placed in a supine position. After general endotracheal anesthesia was induced, rolls were placed underneath the shoulders and the upper chest and neck areas were prepped and draped. The previous incision was then reused and carried down through the skin, subcutaneous and platysmal layers. Subplatysmal flaps were then raised superiorly and inferiorly and the midline closure of the strap muscles was then reopened. Dissection continued down to the left thyroid lobe. Initially, the inferior thyroid vein and middle thyroid vein were taken with Sonicision device, and the upper pole was then similarly isolated and taken with Sonicision device. This then allowed medial mobilization of the left thyroid lobe. The branches of the inferior thyroid artery were then taken flush with the thyroid capsule, thus reflecting the parathyroid glands away from the thyroid tissue itself. Finally, the remaining attachments of the trachea, including the other repair, were taken down with Sonicision, and specimen delivered from the field. The left recurrent laryngeal nerve could be identified and appeared to be intact as it entered the larynx. The incision was then irrigated with antibiotic-containing saline solution. No further problems noted. Because of the amount of edema present, a 10 round Arvind-Ferro drain was taken though a stab wound to the left of the incision and draped across the new areas of dissection. The midline strap muscles were then approximated with a 3-0 Vicryl stitch, the platysmal layer with 4-0 Vicryl stitch, and the skin with a 5-0 Vicryl subcuticular stitch. Dressing was applied. The patient was taken to the recovery room in satisfactory condition. There were no evident complications. Physician entry level administrative assistant, Veronica Gonzalez, played an essential role in assisting in this case; helping to position the patient, retract structures as needed, as well as suturing and cutting sutures when indicated. Her presence improved patient's safety and decreased the operative time. Albino Gaviria MD /[id number]
== END 2019-12-20 11:46 | disposition home or self-care (01) | DRG 627 ==
LOC: JP.SDS 07:51 → JP.MS 11:45 → JP.SDS 12-19 07:59 → JP.MS 12-19 08:00
PROVIDERS: ADMIT Surgery; ATTEND Surgery
PROC: 0GTG0ZZ Resection of Left Thyroid Gland Lobe, Open Approach (ICD-10-PCS; principal; 2019-12-18)
DX: C73 Malignant neoplasm of thyroid gland (principal); E03.9 Hypothyroidism, unspecified; E11.9 Type 2 diabetes mellitus without complications; K21.9 Gastro-esophageal reflux disease without esophagitis; I48.91 Unspecified atrial fibrillation; I87.2 Venous insufficiency (chronic) (peripheral)
CPT/HCPCS: 36415; 80048; 80053; 82962; 83735; 84100; 84443; 85027; 85610; 88307; 94762; A9270-GY; J0330; J0690; J1100; J1170; J1650; J1815; J2020; J2405; J2704; J2710; J3010; J3475; J3490; J7121

== ENCOUNTER 2020-02-16 07:17 | Day surgery (SDC) | payer MEDICARE, BC ==
[~2020-02-16 07:17] MED LIST changes: +Bupivacaine 0.5% 50 ML MDV ONE; -HYDROmorphone/Normal Saline 15 MG/30 ML PCA IV PRN; +Lidocaine 1% with EPINEPHrine 1:100,000 50 ML MDV ONE; -Naloxone 0.4 MG/ML SDV IV PRN; -Naloxone 0.4 MG/ML SDV IVPUSH PRN; -Ondansetron 4 MG/2 ML SDV IVPUSH PRN; -diphenhydrAMINE 25 MG Cap PO PRN; -diphenhydrAMINE 50 MG/ML SDV IVPUSH PRN
[2020-02-16] MEDS ORDERED: Glycopyrrolate 0.2 MG/ML 5 ML MDV ONE (07:39)
[2020-02-16] MEDS ORDERED: Rocuronium 50 MG/5 ML Vial ONE (07:39)
[2020-02-16] MEDS ORDERED: Neostigmine Methylsulfate 1 MG/ML 5 ML Syringe ONE (07:39)
[2020-02-16] MEDS ORDERED: Dexamethasone 4 MG/ML SDV ONE (07:39)
[2020-02-16] MEDS ORDERED: Succinylcholine 200 MG/10 ML MDV ONE (07:39)
[2020-02-16] MEDS ORDERED: Propofol 200 MG/20 ML SDV ONE (07:39)
[2020-02-16] MEDS ORDERED: fentaNYL 250 MCG/5 ML SDV ONE (07:39)
[2020-02-16] MEDS ORDERED: Ondansetron 4 MG/2 ML SDV ONE (07:39)
[2020-02-16] MEDS ORDERED: ceFAZolin 2 GM in Premix Bag 1 BAG IV ONE (07:45)
[2020-02-16] MEDS ORDERED: Dextrose 5%-Lactated Ringers 1,000 ML IV SCH (07:45)
[2020-02-16] MEDS ORDERED: Acetaminophen 325 MG Tab PO ONE (11:00)
[2020-02-16] MEDS ORDERED: Enoxaparin 100 MG/1 ML Syringe SUBCUT ONE (11:00)
[2020-02-16 11:17] VITALS: BP 124/48; PULSE 66
--- NOTE | 2020-02-23 13:35 | OR ---
DATE OF PROCEDURE: 02/16/2020 SURGEON: Albino Gaviria MD PREOPERATIVE DIAGNOSIS: Right cervical lymph node with loss of fatty hilum in a patient with history of papillary thyroid carcinoma. POSTOPERATIVE DIAGNOSIS: Right cervical lymph node with loss of fatty hilum in a patient with history of papillary thyroid carcinoma. PROCEDURE: Excision of right cervical lymph node ([id number]). ANESTHESIA: General. INDICATIONS FOR PROCEDURE: This is a 74-year-old status post recent thyroidectomy for papillary carcinoma. Ultrasound showed a node in the right side of the neck in what would normally be lateral to the right thyroid lobe which although not enlarged had loss of fatty hilum. This most likely is an inflammatory change related to the recent surgery, but the patient wishes to have that excised to provide some more degree of certainty of diagnosis. Potential risks including bleeding, infection, injury to blood vessels or nerves in the area were all reviewed with the patient and she wishes to proceed. DETAILS OF PROCEDURE: The patient was taken to the operating room. After general endotracheal anesthesia was induced, the node as seen on the preoperative ultrasound was once again identified by ultrasound and skin marked over that. This then allowed an extension of the cervical excision directly over the area of the node extending it somewhat laterally. This was carried down through the skin, subcutaneous tissue, and platysmal layers. The strap muscles in this area were then and the sternocleidomastoid muscle retracted slightly laterally. The node in question was once again identified by ultrasound and this was dissected free. The upper edge of this came up to more or less adjacent to the submandibular gland, but otherwise in the node, there was some adjacent fatty tissue that was excised using blunt dissection along with electrocautery. The node removed was consistent with what was being seen preoperatively in terms of size, location, and appearance, it was most likely firm but still consistent with an inflammatory type node. At this point, incision was closed with some 3-0 and 4-0 Vicryl stitch deep and a 5-0 Vicryl subcuticular stitch. Steri-Strips were applied. The patient was taken to the recovery room in satisfactory condition. Albino Gaviria MD /[id number]
== END 2020-02-16 11:35 | disposition home or self-care (01) ==
LOC: JP.SDS 07:17
PROVIDERS: ATTEND Surgery
DX: R19.04 Left lower quadrant abdominal swelling, mass and lump (principal); K21.9 Gastro-esophageal reflux disease without esophagitis; M85.80 Other specified disorders of bone density and structure, unspecified site; E78.5 Hyperlipidemia, unspecified; E11.42 Type 2 diabetes mellitus with diabetic polyneuropathy; G47.33 Obstructive sleep apnea (adult) (pediatric); I48.0 Paroxysmal atrial fibrillation; J45.20 Mild intermittent asthma, uncomplicated; E66.9 Obesity, unspecified; F32.9 Major depressive disorder, single episode, unspecified; E11.51 Type 2 diabetes mellitus with diabetic peripheral angiopathy without gangrene; Z79.84 Long term (current) use of oral hypoglycemic drugs; Z79.82 Long term (current) use of aspirin; Z79.899 Other long term (current) drug therapy; Z79.4 Long term (current) use of insulin; Z99.89 Dependence on other enabling machines and devices; Z79.01 Long term (current) use of anticoagulants; Z85.850 Personal history of malignant neoplasm of thyroid; Z68.38 Body mass index [BMI] 38.0-38.9, adult; Z79.890 Hormone replacement therapy
CPT/HCPCS: 36415; 38510; 76998; 80048; 83735; 84100; 85027; 85610; 88305; 88341; 88342; 88360; 88364; 88365; A9270; J0690; J1100; J1650; J2405; J2704; J2710; J3010; J3490; J7121; J0330

== ENCOUNTER 2021-02-11 07:46 | Day surgery (SDC) | payer MEDICARE, BC ==
[2021-02-11] MEDS ORDERED: Dextrose 5%-Lactated Ringers 1,000 ML IV SCH (08:30)
[2021-02-11] MEDS ORDERED: fentaNYL 100 MCG/2 ML SDV ONE (10:14)
[2021-02-11] MEDS ORDERED: Propofol 200 MG/20 ML SDV ONE (10:14)
[2021-02-11 11:48] VITALS: BP 139/76; PULSE 65
--- NOTE | 2021-02-21 16:28 | OR ---
DATE OF PROCEDURE: 02/11/2021 SURGEON: Albino Gaviria MD PREOPERATIVE DIAGNOSIS: Recent history of melenic stools. POSTOPERATIVE DIAGNOSES: Upper endoscopy showin. A. Moderate antral gastritis without erosions or ulcers. 2. B. Moderate-sized hiatal hernia without gross esophageal inflammation. 3. C. No active bleeding or blood seen on current exam. OPERATIVE PROCEDURE: Upper gastrointestinal endoscopy with biopsies of antrum for CLOtest. ANESTHESIA: IV sedation. INDICATIONS FOR PROCEDURE: This is a 75-year-old female who, up to around 3 days ago, was experiencing some black tarry stools. She was seen in the clinic yesterday by Dr. Vallejo and at that time had a hemoglobin of 10.1, today as 9.9. The patient presently is on Protonix 40 mg b.i.d. The patient is also apparently coumadinized with a pro time today of 25.9 and INR of 2.42. The plan will be to proceed with upper GI endoscopy with biopsies as indicated. Potential risks including bleeding and perforation were discussed, and the patient wishes to proceed. DETAILS OF PROCEDURE: The patient was taken to the operating room, placed in a left lateral decubitus position. IV sedation was administered after which the upper GI endoscope was passed orally through the length of the esophagus into the stomach with retroflexion view of the fundus and thereafter through the pyloric channel and into the proximal duodenum. Findings included normal hypopharynx, larynx, upper esophageal sphincter, and esophageal body. The patient did have a fairly large, roughly 5 cm hiatal hernia, but this was not associated with any gross inflammation and no signs of anything that would likely be associated with any recent bleeding. There was no stricturing or plaquing. Within the stomach, there was some moderate antral gastritis within the antrum including pre-pyloric area being generally reddened and somewhat edematous. There were no erosions or ulcers noted. No blood or bleeding. Pyloric channel and duodenum at junction of the third and fourth portions were otherwise unremarkable. At this point, biopsies obtained from the antrum and sent for CLOtest for H. pylori. Minimal bleeding from the biopsy sites was seen, and the procedure was then concluded. At this point, we will add Carafate 1 g q.i.d. to the medical management, and we will have her hold her Coumadin for the next 48 hours restarting this on Sunday. She will be instructed to see Dr. Vallejo in 5 to 7 days with a CBC and pro time to be obtained at that time. Albino Gaviria MD /[id number]
== END 2021-02-11 11:50 | disposition home or self-care (01) ==
LOC: JP.SDS 07:46
PROVIDERS: ATTEND Surgery
DX: K29.70 Gastritis, unspecified, without bleeding (principal); K44.9 Diaphragmatic hernia without obstruction or gangrene; E11.9 Type 2 diabetes mellitus without complications; E66.9 Obesity, unspecified; Z68.38 Body mass index [BMI] 38.0-38.9, adult; D64.9 Anemia, unspecified; Z88.2 Allergy status to sulfonamides; Z88.6 Allergy status to analgesic agent; Z88.7 Allergy status to serum and vaccine; Z88.8 Allergy status to other drugs, medicaments and biological substances
CPT/HCPCS: 36415; 43239; 80053; 83735; 84100; 85027; 85610; 87081; J2704; J3010; J7121

== ENCOUNTER 2022-10-02 05:58 | Day surgery (SDC) | payer BC, MEDICARE ==
[2022-10-02] MEDS ORDERED: Lactated Ringers 1,000 ML IV SCH (06:30)
[2022-10-02] MEDS ORDERED: Dextrose 5%-Lactated Ringers 1,000 ML IV SCH (06:30)
[2022-10-02] MEDS ORDERED: Propofol 200 MG/20 ML SDV ONE (07:08)
[2022-10-02] MEDS ORDERED: fentaNYL 100 MCG/2 ML SDV ONE (07:08)
[2022-10-02 08:44] VITALS: BP 114/57; PULSE 55
== END 2022-10-02 08:49 | disposition home or self-care (01) ==
LOC: JP.SDS 05:58
PROVIDERS: ATTEND Surgery
DX: K57.30 Diverticulosis of large intestine without perforation or abscess without bleeding (principal); I10 Essential (primary) hypertension; E11.9 Type 2 diabetes mellitus without complications; Z85.038 Personal history of other malignant neoplasm of large intestine; Z90.49 Acquired absence of other specified parts of digestive tract; Z98.0 Intestinal bypass and anastomosis status; Z88.2 Allergy status to sulfonamides; Z88.7 Allergy status to serum and vaccine
CPT/HCPCS: 45378; J2704; J3010; J7120

== ENCOUNTER 2025-01-29 06:38 | Day surgery (SDC) | payer MEDICARE ==
[2025-01-29] MEDS ORDERED: Propofol 200 MG/20 ML SDV ONE (07:17)
[2025-01-29] MEDS ORDERED: fentaNYL 100 MCG/2 ML SDV ONE (07:17)
[2025-01-29] MEDS: Lactated Ringers 1,000 ML IV SCH (07:18)
[2025-01-29 08:25] VITALS: PULSE 68
[2025-01-29 08:54] VITALS: BP 126/68
== END 2025-01-29 10:00 | disposition home or self-care (01) ==
LOC: JP.SDS 06:38
PROVIDERS: ATTEND Surgery
DX: K31.89 Other diseases of stomach and duodenum (principal); K22.89 Other specified disease of esophagus; K21.9 Gastro-esophageal reflux disease without esophagitis; I10 Essential (primary) hypertension
CPT/HCPCS: 00731; 43239; 88305; 88342; J2704; J3010; J7120

== ENCOUNTER 2025-06-25 06:43 | Day surgery (SDC) | payer MEDICARE ==
[2025-06-25] MEDS: Sodium Chloride 0.9% 10 ML Syringe FLUSH PRN (07:34)
[2025-06-25 08:10] VITALS: BP 138/69; PULSE 72
== END 2025-06-25 08:30 | disposition home or self-care (01) ==
LOC: JP.SDS 06:43
PROVIDERS: ATTEND Ophthalmology
DX: E11.36 Type 2 diabetes mellitus with diabetic cataract (principal); H25.11 Age-related nuclear cataract, right eye; E78.00 Pure hypercholesterolemia, unspecified; I10 Essential (primary) hypertension; E03.9 Hypothyroidism, unspecified; E66.9 Obesity, unspecified; Z88.8 Allergy status to other drugs, medicaments and biological substances; Z88.2 Allergy status to sulfonamides; Z91.09 Other allergy status, other than to drugs and biological substances; Z79.01 Long term (current) use of anticoagulants; Z68.30 Body mass index [BMI] 30.0-30.9, adult; Z79.84 Long term (current) use of oral hypoglycemic drugs; Z79.899 Other long term (current) drug therapy; Z79.890 Hormone replacement therapy
CPT/HCPCS: V2632